=== PATIENT | female | born 1995 | race Caucasian/White ===

== ENCOUNTER 2022-09-04 10:27 | Emergency (ER) | payer OTHER, SELFPAY ==
[2022-09-04 10:34] VITALS: BP 153/87; PULSE 91; RESP 16; TEMP 36.8; O2SAT 99; BMI 33.1
--- NOTE | 2022-09-04 12:12 | XR_ITS ---
The [address] [address] Patient Name: JOANIE GOMEZ MRN: [id number] date: 1995 Sex: F Assigned Patient Location: ER Current Patient Location: ER Accession/Order Number: [id number] Exam Date: 09/04/2022 12:25 Report Date: 09/04/2022 12:51 At the request of: RENZO HYMAN Procedure: XR thoracic spine 3V EXAMINATION: XR thoracic spine 3V HISTORY: pain, acute on chronic, concern for scoliosis COMPARISON: No relevant comparison available. FINDINGS: BONES: Normal. No significant spondylosis, scoliosis, fracture, or visible bony lesion. DISC SPACES: Normal. No significant disc height narrowing, subluxation, or endplate abnormality. PARASPINOUS: Negative. No paraspinous abnormality is seen. OTHER: Negative. IMPRESSION: No acute abnormality Electronically authenticated by: ROSALINA GALLARDO Date: 09/04/2022 12:51
--- NOTE | 2022-09-04 12:23 | ED.GENADUL1 ---
HPI - General Adult General Chief complaint: Back Pain/Injury Stated complaint: BACK PAIN Time Seen by Provider: 09/04/22 10:31 Source: patient Mode of arrival: walk-in Limitations: no limitations History of Present Illness HPI narrative: Patient is a 27-year-old female who is presenting to the Emergency Room with one week of mid/lower thoracic pain. Patient has 2 small children at home. 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 Patient has no new injury. Patient has intermittent numbness and tingling down her arms, that is chronic. Patient has no neck pain, no headache. Patient has no chest pain or shortness of breath, nausea, vomiting, bowel pain, or any other acute complaints. Patient has been taking ibuprofen, not doing any stretching, she's been using heat as well. Patient's PCP is in [place], Dr. Abdullahi. Dr. Abdullahi is retiring, she is currently seeing a new physician in that office that she is only seen one time. Patient's here because pain secondary better. No questions or concerns otherwise. Related Data Previous Rx's Medication Instructions Recorded methocarbamol 500 mg tablet 500 mg PO TID PRN muscle pain #10 09/04/22 tabs tramadol 50 mg tablet 50 mg PO Q8H PRN pain #10 tabs 09/04/22 Allergies Allergy/AdvReac Type Severity Reaction Status Date / Time amoxicillin Allergy Severe Verified 09/04/22 10:34 Review of Systems ROS Narrative All systems are negative except as noted/marked. All systems reviewed and otherwise negative. PFSH PFSH Social History Smoking status: Former smoker Exam Narrative Exam Narrative: Nurses note and vital signs reviewed and patient is not hypoxic. General: The patient appears well and in no apparent distress. Patient is resting comfortably on cart. Patient is not toxic, lethargic, or listless Skin: Warm, dry, no pallor noted. There is no rash noted. No petechiae, purpura. Head: Normocephalic, atraumatic Eye: Normal conjunctiva, no drainage, EOMI. PERRL Ears, Nose, Mouth, and Throat: oral mucosa is moist. Cardiovascular: Regular Rate and Rhythm, no murmur, gallop, rub Respiratory: Patient is in no distress, no accessory muscle use, lungs are clear to auscultation, no wheezing, rales or rhonchi Back: Patient has mild to moderate tenderness palpation to bilateral thoracic paraspinal from approximately T5?T 10, no rash, patient has no midline tenderness palpation, otherwise non-tender, no CVA tenderness bilaterally to percussion. No CT LS midline pain GI: soft, no tenderness to palpation, no masses appreciated. No rebound, guarding, or rigidity noted. No flank pain bilateral, No distention Musculoskeletal: Patient has full range of motion of all of the extremities, no motor, sensory, or focal neurological deficits Neurological: A&O x3, normal speech Psychiatric: Cooperative Constitutional Vital Signs - 24 hr 09/04/22 10:34 Temperature 98.2 F Pulse Rate [Monitor] 91 H Respiratory Rate 16 Blood Pressure [Right Arm] 153/87 H Pulse Oximetry 99 Oxygen Delivery Method Room Air Course Vital Signs Vital signs: Vital Signs Temperature 98.2 F 09/04/22 10:34 Pulse Rate 91 H 09/04/22 10:34 Respiratory Rate 16 09/04/22 10:34 Blood Pressure 153/87 H 09/04/22 10:34 Pulse Oximetry 99 09/04/22 10:34 Oxygen Delivery Method Room Air 09/04/22 10:34 Temperature 98.2 F 09/04/22 10:34 Pulse Rate 91 H 09/04/22 10:34 Respiratory Rate 16 09/04/22 10:34 Blood Pressure 153/87 H 09/04/22 10:34 Pulse Oximetry 99 09/04/22 10:34 Oxygen Delivery Method Room Air 09/04/22 10:34 Medical Decision Making MDM Narrative Medical decision making narrative: Patient was given shot of Toradol. Patient had thoracic x-ray at her request because she is concerned about scoliosis, states that her parents are bad and they never took her to the doctor to have her have x-rays of her chronic back pain. Patient will be sent home with tramadol and Robaxin, education ice and stretching. Patient will follow-up with PCP. No questions at discharge Discharge Plan Discharge Chief Complaint: Back Pain/Injury Clinical Impression: Thoracic back pain Patient Disposition: Home, Self-Care Prescriptions / Home Meds: New tramadol 50 mg tablet 50 mg PO Q8H PRN (Reason: pain) Qty: 10 0RF methocarbamol 500 mg tablet 500 mg PO TID PRN (Reason: muscle pain) Qty: 10 0RF Instructions: Thoracic Pain (ED), Chronic Back Pain (DC), Back Pain (ED), Lower Back Exercises (ED) Additional Instructions: Ice and thoracic back stretching exercises were discussed at bedside and on discharge paperwork. Do not use heat. Call your family doctor as discussed for outpatient physical therapy if indicated. He may use Tylenol, anti-inflammatories, along which, lower, muscle relaxer, and ice. Nothing will get better without ice, stretching. Stand Alone Forms: Portal Instructions Referrals: JOYA ABDULLAHI [Primary Care Provider] - 1 week
[2022-09-04] MEDS: KETOROLAC TROMETHAMINE 60 MG/2 ML VIAL IM (12:45)
[2022-09-04 13:29] VITALS: BP 143/78; PULSE 87; RESP 16; TEMP 36.8; O2SAT 97
== END 2022-09-04 13:31 | disposition home or self-care (01) ==
PROVIDERS: Emergency Provider Emergency Medicine; PCP Family Medicine
DX: M54.6 Pain in thoracic spine (principal); Z87.891 Personal history of nicotine dependence
CPT/HCPCS: 72072; 80053; 81001; 83605; 83690; 84703; 85025; 96374; 99284

== ENCOUNTER 2022-10-16 21:02 | Emergency (ER) | payer OTHER, SELFPAY ==
[2022-10-16 21:08] VITALS: BP 130/78; PULSE 72; RESP 18; TEMP 36.6; O2SAT 99; BMI 34.6
--- NOTE | 2022-10-16 21:41 | US_ITS ---
The [place] [id number] Patient Name: JOANIE GOMEZ MRN: [id number] date: 1995 Sex: F Assigned Patient Location: ER Current Patient Location: ER Accession/Order Number: [id number] Exam Date: 10/16/2022 22:35 Report Date: 10/16/2022 23:55 At the request of: FLORENCIA COHEN Procedure: US OB transvaginal EXAMINATION: US OB transvaginal HISTORY: trauma and pain COMPARISON: No relevant comparison available. FINDINGS: GESTATIONAL SAC: Present and normal appearing. YOLK SAC: Not seen. POLE: Present. CARDIAC: Absent. UTERUS: Slightly hypervascular, but otherwise normal size and appearance. OVARIES: Right: Normal. Left: Normal. CERVIX: 3.8 cm in length and closed. CUL-DE-SAC: Normal. OTHER: None. AGE BY LMP: 10 weeks 4 days VALARIE BY LMP: 05/10/2023 AGE BY US CRL: 9 weeks 6 days VALARIE BY US CRL: 05/15/2023 US/US OB transvaginal IMPRESSION: 1. Intrauterine measuring 9 weeks 6 days; no detectable heartbeat at this time. Electronically authenticated by: BEBO HUSSEIN Date: 10/16/2022 23:55
[2022-10-16 21:52] LABS: Basophils Percent Auto 0.3 % (0.2-2.0); Eosinophils Absolute Auto 0.1 10^3/uL (0.0-0.7); Eosinophils Percent Auto 1.1 % (0.9-7.0); Hematocrit 37.8 % (36.0-48.0); Hemoglobin 12.8 g/dL (12.0-16.0); Immature Granulocytes Abs Auto 0.04 10^3/uL (0.00-0.03); Immature Granulocytes Pct Auto 0.3 % (0.0-0.5); Lymphocytes Absolute Auto 2.2 10^3/uL (1.2-3.8); Mean Corpuscular HGB Conc 33.9 g/dL (29.9-35.2); Mean Corpuscular Hemoglobin 27.7 pg (26.7-34.0); Mean Corpuscular Volume 81.8 fL (81.0-99.0); Mean Platelet Volume 8.8 fL (9.5-13.5); Monocytes Absolute Auto 0.5 10^3/uL (0.3-0.8); Monocytes Percent Auto 3.8 % (1.7-12.0); Neutrophils Absolute Auto 9.2 10^3/uL (1.4-6.5); Neutrophils Percent Auto 76.5 % (43.0-75.0); Platelet Count 271 10^3/uL (150-450); Red Blood Count 4.62 10^6/uL (4.20-5.40); Red Cell Distribution Width 12.4 % (11.0-15.0)
[2022-10-16 22:07] LABS: Alanine Aminotransferase 13 U/L (14-59); Albumin Level 3.6 g/dL (3.4-5.0); Alkaline Phosphatase 64 U/L (46-116); Anion Gap 13.7; Aspartate Amino Transferase 13 U/L (15-37); BUN Creatinine Ratio 9.6; Bilirubin Total 0.2 mg/dL (0.2-1.0); Calcium 8.7 mg/dL (8.5-10.1); Carbon Dioxide 24.6 mmol/L (21.0-32.0); Chloride 104 mmol/L (98-107); Estimated GFR (African America >60 (>=60); Estimated GFR (Non-African Ame >60 (>=60); Globulin 3.7 g/dL; Glucose 121 mg/dL (74-106); Potassium 4.3 mmol/L (3.5-5.1); Sodium 138 mmol/L (136-145); Total Protein 7.3 g/dL (6.4-8.2)
[2022-10-16 22:27] LABS: HCG Quantitative 8551 mIU/mL
[2022-10-16 23:28] VITALS: BP 120/78; PULSE 62; RESP 16; O2SAT 98
[2022-10-17 01:21] LABS: Bilirubin Urine NEGATIVE (NEGATIVE); Blood Urine TRACE-I (NEGATIVE); Clarity Urine CLEAR (CLEAR); Color Urine LT. YELLOW (YELLOW); Glucose Urine UA NEGATIVE (NEGATIVE); Ketones Urine NEGATIVE (NEGATIVE); Leukocyte Esterase Urine NEGATIVE (NEGATIVE); Nitrite Urine NEGATIVE (NEGATIVE); Protein Urine NEGATIVE (NEG/TRACE); Specific Gravity Urine 1.015 (1.005-1.025); Urine Microscopic Indicated YES; Urobilinogen Urine 0.2 EU/dL (0.2-1.0)
[2022-10-17 01:28] LABS: Bacteria Urine NONE SEEN #/HPF (NONE SEEN); Cast Seen? NONE SEEN #/LPF (NONE SEEN); Crystals Seen? None Seen #/HPF (None Seen); Mucus Urine TRACE (NONE SEEN); Squamous Epithelial Cell Urine RARE #/LPF (NONE/RARE); Urine Culture Indicated NO; WBC Urine NONE SEEN #/HPF (NONE SEEN)
--- NOTE | 2022-10-17 01:41 | ED.FEMALEGU1 ---
HPI - Female Genitourinary General Chief complaint: OB/Uterine Contractions Stated complaint: Pelvic Pain, - less then 20-wks Time Seen by Provider: 10/16/22 21:09 Source: patient Mode of arrival: walk-in Limitations: no limitations History of Present Illness HPI Narrative: The patient presented to us with a suprapubic pain crampy-like that started almost a few hours ago she mentioned that 3 hours prior to the pain starting she had this kick by her 3 years old while playing The patient denies any vaginal bleeding denying any other complaints she mentioned that she just knew that she was almost 2 days ago and she thinks that she is almost 10 weeks This patient at the third and there was no history of miscarriage no history of vaginal bleeding but she did had some spotting while having sexual encounter was 3 days ago The patient have no nausea no vomiting no changes in bowel movement and she was diagnosed with UTI not long time ago and she was still finishing her antibiotic and she thinks she is taking cefdinir Related Data Home Medications Medication Instructions Recorded Confirmed cetirizine 10 mg tablet 40 mg PO DAILY 10/16/22 10/16/22 fluticasone propionate 50 1 spray intranasal DAILY 10/16/22 10/16/22 mcg/actuation nasal spray,suspension Previous Rx's Medication Instructions Recorded methocarbamol 500 mg tablet 500 mg PO TID PRN muscle pain #10 09/04/22 tabs tramadol 50 mg tablet 50 mg PO Q8H PRN pain #10 tabs 09/04/22 Allergies Allergy/AdvReac Type Severity Reaction Status Date / Time amoxicillin Allergy Severe Verified 10/16/22 21:13 Review of Systems ROS Status of ROS 10 or more systems reviewed and unremarkable except as noted in history and below [facility] Social History Smoking status: Former smoker Exam Narrative Exam Narrative: Nurses notes and vital signs reviewed and patient is not hypoxic. General: Well-appearing and in no apparent distress. Skin: Warm, dry, no pallor noted. No rash. Head: Normocephalic, atraumatic. Neck: Supple, non-tender. Eye: Pupils are equal, round and EOMI. No scleral icterus. Ears, Nose, Mouth, and Throat: TM are clear, no nasal mucosal hypertrophy. Oral mucosa is moist, no posterior oropharynx erythema, uvula is mid-line Cardiovascular: Regular Rate and Rhythm without murmur, gallop or rub. Respiratory: No accessory muscle use or respiratory distress. Lungs are clear to auscultation, no wheezing, rales or rhonchi Chest Wall: no tenderness Back: No midline thoracic or lumbar vertebral tenderness. No CVA tenderness Musculoskeletal: normal ROM, no calf or popliteal tenderness, no lower extremity edema/swelling GI: Abdomen is soft, non-distended. Normal bowel sounds. No masses appreciated. No tenderness to palpation. No rebound, guarding, or rigidity noted. Neurological: A&O x4. No cranial nerve dysfunction observed. No truncal ataxia. Moves all extremities. Sensation intact. Psychiatric: Cooperative and interactive. Normal mood and affect. Constitutional Vital Signs, click to edit/add: Last Vital Signs Temp 98 F 10/16/22 21:08 Pulse 62 10/16/22 23:28 Resp 16 10/16/22 23:28 BP 120/78 10/16/22 23:28 Pulse Ox 98 10/16/22 23:28 O2 Del Method Room Air 10/16/22 23:28 Course Vital Signs Vital signs: Vital Signs Temperature 98 F 10/16/22 21:08 Pulse Rate 72 10/16/22 21:08 Respiratory Rate 18 10/16/22 21:08 Blood Pressure 130/78 10/16/22 21:08 Pulse Oximetry 99 10/16/22 21:08 Oxygen Delivery Method Room Air 10/16/22 21:08 Temperature 98 F 10/16/22 21:08 Pulse Rate 62 10/16/22 23:28 Respiratory Rate 16 10/16/22 23:28 Blood Pressure 120/78 10/16/22 23:28 Pulse Oximetry 98 10/16/22 23:28 Oxygen Delivery Method Room Air 10/16/22 23:28 MDM - Female Genitourinary MDM Narrative Medical decision making narrative: The patient CBC and chemistry showed no acute pathology and her blood group is O+ hCG quantitative was 8000 almost And the patient urinalysis showed no UTI The patient ultrasound transvaginal shows 9 weeks with no heart . I did speak with Dr. Negrete and OUTSIDE DELIVERER and I discussed the case with her right now the patient pain could be secondary to the demise. The patient was informed of the results and discussed the results of the findings with her she is to follow-up with Dr. Negrete next week The patient also instructed about pain management and proper monitoring her symptoms in case of vaginal bleeding The patient is to follow up with primary care physician in next 2-3 days or to return to the emergency department should any of the signs or symptoms worsen or new symptoms develop. The patient agrees with the following Diagnosis and Treatment plan and the patient will be discharged home. Lab Data Labs: Lab Results 10/16/22 10/16/22 10/17/22 Range/Units 01:10 21:40 00:35 WBC 12.0 H (4.0-11.0) 10^3/uL RBC 4.62 (4.20-5.40) 10^6/uL Hgb 12.8 (12.0-16.0) g/dL Hct 37.8 (36.0-48.0) % MCV 81.8 (81.0-99.0) fL MCH 27.7 (26.7-34.0) pg MCHC 33.9 (29.9-35.2) g/dL RDW 12.4 (11.0-15.0) % Plt Count 271 (150-450) 10^3/uL MPV 8.8 L (9.5-13.5) fL Neut % (Auto) 76.5 H (43.0-75.0) % Lymph % (Auto) 18.0 L (20.5-60.0) % [place] % (Auto) 3.8 (1.7-12.0) % Eos % (Auto) 1.1 (0.9-7.0) % Baso % (Auto) 0.3 (0.2-2.0) % Neut # (Auto) 9.2 H (1.4-6.5) 10^3/uL Lymph # (Auto) 2.2 (1.2-3.8) 10^3/uL [place] # (Auto) 0.5 (0.3-0.8) 10^3/uL Eos # (Auto) 0.1 (0.0-0.7) 10^3/uL Baso # (Auto) 0.0 (0.0-0.1) 10^3/uL Abs Immat Gran (auto) 0.04 H (0.00-0.03) 10^3/uL Imm/Tot Granulo (auto) 0.3 (0.0-0.5) % Sodium 138 (136-145) mmol/L Potassium 4.3 (3.5-5.1) mmol/L Chloride 104 (98-107) mmol/L Carbon Dioxide 24.6 (21.0-32.0) mmol/L Anion Gap 13.7 BUN 9.0 (7.0-18.0) mg/dL Creatinine 0.94 (0.55-1.02) mg/dL Est GFR ( Amer) >60 (>=60) Est GFR (Non-Af Amer) >60 (>=60) BUN/Creatinine Ratio 9.6 Glucose 121 H (74-106) mg/dL Calcium 8.7 (8.5-10.1) mg/dL Total Bilirubin 0.2 (0.2-1.0) mg/dL AST 13 L (15-37) U/L ALT 13 L (14-59) U/L Alkaline Phosphatase 64 (46-116) U/L Total Protein 7.3 (6.4-8.2) g/dL Albumin 3.6 (3.4-5.0) g/dL Globulin 3.7 g/dL Albumin/Globulin Ratio 1.0 HCG, Quant 8551 mIU/mL Urine Color Lt. yellow (YELLOW) Urine Clarity Clear (CLEAR) Urine pH 7.0 (5.0-9.0) Ur Specific [place] 1.015 (1.005-1.025) Urine Protein Negative (NEG/TRACE) mg/dL Urine Glucose (UA) Negative (NEGATIVE) mg/dL Urine Ketones Negative (NEGATIVE) mg/dL Urine Occult Blood Trace-i (NEGATIVE) Urine Nitrite Negative (NEGATIVE) Urine Bilirubin Negative (NEGATIVE) Urine Urobilinogen 0.2 (0.2-1.0) EU/dL Ur Leukocyte Esterase Negative (NEGATIVE) Urine RBC 2-5 A (0-2) #/HPF Urine WBC None seen (NONE SEEN) #/HPF Ur Squamous Epith Cells Rare (NONE/RARE) #/LPF Urine Crystals None seen (None Seen) #/HPF Urine Bacteria None seen (NONE SEEN) #/HPF Urine Casts None seen (NONE SEEN) #/LPF Urine Mucus Trace A (NONE SEEN) Ur Culture Indicated? No Blood Type O Positive Antibody Screen Negative Discharge Plan Discharge Chief Complaint: OB/Uterine Contractions Clinical Impression: demise due to miscarriage Patient Disposition: Home, Self-Care Time of Disposition Decision: 01:54 Condition: Good Mode of Transportation: Private Vehicle Prescriptions / Home Meds: No Action tramadol 50 mg tablet 50 mg PO Q8H PRN (Reason: pain) Qty: 10 0RF methocarbamol 500 mg tablet 500 mg PO TID PRN (Reason: muscle pain) Qty: 10 0RF cetirizine 10 mg tablet 40 mg PO DAILY fluticasone propionate 50 mcg/actuation spray,suspension 1 spray INTRANASAL DAILY Instructions: Miscarriage (ED) Stand Alone Forms: Portal Instructions Referrals: JOYA ABDULLAHI [Primary Care Provider] - 1 week Discharge Date/Time: 10/17/22 02:15
== END 2022-10-17 02:15 | disposition home or self-care (01) ==
PROVIDERS: Emergency Provider Emergency Medicine; PCP Family Medicine
DX: O03.9 Complete or unspecified spontaneous abortion without complication (principal); Z87.891 Personal history of nicotine dependence
CPT/HCPCS: 36415; 76817; 80053; 81001; 81003; 84702; 85025; 86850; 86900; 86901; 99284

== ENCOUNTER 2022-10-22 03:00 | Day surgery (SDC) | payer OTHER, SELFPAY ==
[2022-10-22] VITALS (46 sets, daily range): BP systolic 50–131; BP diastolic 33–74; PULSE 52–92; RESP 9–22; TEMP 36.7–36.8; O2SAT 88–100; BMI 75.0
--- NOTE | 2022-10-22 | US_ITS ---
The [address] [address] Patient Name: JOANIE GOMEZ MRN: [id number] date: 1995 Sex: F Assigned Patient Location: ED.MAIN Current Patient Location: ER Accession/Order Number: [id number] Exam Date: 10/22/2022 08:00 Report Date: 10/22/2022 08:44 At the request of: LENNY MARKER Procedure: US pelvis EXAMINATION: US pelvis HISTORY: RETAINED PRODUCTS COMPARISON: No relevant comparison available. FINDINGS: Transabdominal images The uterus is poorly visualized due to poor acoustic window. The endometrial is poorly visualized US/US pelvis IMPRESSION: Limited imaging of the uterus. No definite retained products of conception Electronically authenticated by: ROSALINA GALLARDO Date: 10/22/2022 08:44
--- NOTE | 2022-10-22 03:18 | ECG_ITS ---
The [facility] Test Date: 2022-10-22 Pat Name: JOANIE GOMEZ Department: Room: - Gender: Female Admitting Interviewer: : 1995 Requested By: Order Number: [id number] Reading MD: ELOISA PATEL Measurements Intervals [place] Rate: 76 P: 22 ND: 160 QRS: 28 QRSD: 88 T: 15 QT: 358 QTc: 388 Interpretive Statements 1100 Sinus rhythm Non-Specific T wave inversion in III 9110 normal ECG No previous ECG available for comparison Electronically Signed On 10-23-2022 5:52:09 EDT by ELOISA PATEL
[2022-10-22 03:31] LABS: Basophils Percent Auto 0.3 % (0.2-2.0); Eosinophils Absolute Auto 0.5 10^3/uL (0.0-0.7); Eosinophils Percent Auto 3.9 % (0.9-7.0); Hematocrit 30.7 % (36.0-48.0); Hemoglobin 10.5 g/dL (12.0-16.0); Immature Granulocytes Abs Auto 0.06 10^3/uL (0.00-0.03); Immature Granulocytes Pct Auto 0.4 % (0.0-0.5); Lymphocytes Absolute Auto 3.1 10^3/uL (1.2-3.8); Mean Corpuscular HGB Conc 34.2 g/dL (29.9-35.2); Mean Corpuscular Hemoglobin 28.2 pg (26.7-34.0); Mean Corpuscular Volume 82.5 fL (81.0-99.0); Mean Platelet Volume 9.2 fL (9.5-13.5); Monocytes Absolute Auto 0.7 10^3/uL (0.3-0.8); Monocytes Percent Auto 4.9 % (1.7-12.0); Neutrophils Absolute Auto 9.1 10^3/uL (1.4-6.5); Neutrophils Percent Auto 67.5 % (43.0-75.0); Platelet Count 274 10^3/uL (150-450); Red Blood Count 3.72 10^6/uL (4.20-5.40); Red Cell Distribution Width 12.6 % (11.0-15.0); White Blood Count 13.5 10^3/uL (4.0-11.0)
--- NOTE | 2022-10-22 03:32 | ED_ITS ---
HPI - Female Genitourinary General Chief complaint: Vaginal Bleeding Stated complaint: PROBLEMS > 20 WEEKS Time Seen by Provider: 10/22/22 03:02 Source: patient Mode of arrival: walk-in History of Present Illness HPI Narrative: This 27-year-old female who is approximately 9 weeks and was diagnosed with demise at a October 16 presents for evaluation of lower abdominal cramping and passage of large amount of clots, bleeding and the patient believes that she passed the fetus. She was seen in this emergency department and diagnosed with a demise. She followed up with Dr. Sadler, her SHOWER ENCLOSURE INSTALLER, he repeated the ultrasound and confirmed the demise. The patient states she was having a small amount of spotting until around midnight tonight when she woke up soaked with blood with large volume of clots and thinks that she passed the fetus because she saw the tissue. Upon arrival she was dizzy and nauseated. She was noted to be pale and somewhat sweaty. She was taken to room 8 and put on the stretcher. She has not passed out and is not actively vomiting. Related Data Home Medications Medication Instructions Recorded Confirmed cetirizine 10 mg tablet 40 mg PO DAILY 10/16/22 10/16/22 fluticasone propionate 50 1 spray intranasal DAILY 10/16/22 10/16/22 mcg/actuation nasal spray,suspension Previous Rx's Medication Instructions Recorded methocarbamol 500 mg tablet 500 mg PO TID PRN muscle pain #10 09/04/22 tabs tramadol 50 mg tablet 50 mg PO Q8H PRN pain #10 tabs 09/04/22 Allergies Allergy/AdvReac Type Severity Reaction Status Date / Time amoxicillin Allergy Severe Verified 10/22/22 03:15 Review of Systems ROS Status of ROS 10 or more systems reviewed and unremarkable except as noted in history and below PFSH PFS Social History Smoking status: Never smoker Exam Narrative Exam Narrative: Nurses note and vital signs reviewed and patient is not hypoxic. Blood pressure was moderately low at 117/63 General: Alert, non toxic but pale adult female, no respiratory distress Skin: warm, pale, slightly diaphoretic Head: Normocephalic, atraumatic Eye: Normal conjunctiva, no drainage, EOMI. PERRL Ears, Nose, Mouth, and Throat: oral mucosa is moist. Cardiovascular: Regular Rate and Rhythm S1S2, no murmurs, rubs or gallops appreciated Respiratory: Patient is in no distress, no accessory muscle use, lungs are clear to auscultation, no wheezing, rales or rhonchi Back: non-tender, no CVA tenderness bilaterally to percussion. GI: Normal bowel sounds, soft, tenderness in lower abdomen withourt rebound, guarding or rigidity - RN assisted with exam and procedure; large amount of bright red blood in vaginal vault with large amount of blood clots and blood coming from cervix, os is open, mild tenderness on exam Musculoskeletal: The patient has no evidence of calf tenderness, no pitting edema, symmetrical pulses noted bilaterally Neurological: A&O x4, normal speech Psychiatric: Cooperative, tearful at times Constitutional Vital Signs, click to edit/add: Last Vital Signs Temp 98.2 F 10/22/22 03:15 Pulse 80 10/22/22 04:31 Resp 15 10/22/22 04:31 BP 102/51 10/22/22 04:31 Pulse Ox 100 10/22/22 04:31 O2 Del Method Room Air 10/22/22 03:15 Course Consultations Consultation #1: Dr Gleason Time: 04:05 Vital Signs Vital signs: Vital Signs Temperature 98.2 F 10/22/22 03:15 Pulse Rate 75 10/22/22 03:15 Respiratory Rate 20 10/22/22 03:15 Blood Pressure 117/63 10/22/22 03:15 Pulse Oximetry 98 10/22/22 03:15 Oxygen Delivery Method Room Air 10/22/22 03:15 Temperature 98.2 F 10/22/22 03:15 Pulse Rate 80 10/22/22 04:31 Respiratory Rate 15 10/22/22 04:31 Blood Pressure 102/51 10/22/22 04:31 Pulse Oximetry 100 10/22/22 04:31 Oxygen Delivery Method Room Air 10/22/22 03:15 MDM - Female Genitourinary MDM Narrative Medical decision making narrative: This 27-year-old female who is approximately 9 weeks when she was seen in this emergency department on October 16 and found to have a demise on ultrasound that was confirmed by her SHOWER ENCLOSURE INSTALLER,Dr. Sadler, presents for evaluation of heavy vaginal bleeding with passage of clots and some tissue that started around midnight. She complained of feeling weak and dizzy upon arrival after having several hours of heavy bleeding. She had used four pads in the hour prior to arrival and was passing large clots. She did not bring the tissue that she felt was the fetus to the emergency department with her. She was noted to be mildly pale upon arrival. Vital signs were normal with the exception of a mildly low blood pressure 117/63. Pulse and EKG were at75-76 beats for minute. No acute changes were noted on her EKG. Upon arrival she was taken to Bed 8 and an IV was placed and she was medicated with IV fluids, Toradol and Zofran. A pelvic exam revealed a large volume of active bleeding from the cervix with passage of multiple clots. I attempted to remove the clots with a ring forceps but was unable to completely remove all the clots and the bleeding did not stop, her cervical os was open. Routine labs are reviewed. She has a mildly elevated white count at 13. Her hemoglobin at 10.5 is considerably lower than when she was here on October 16 when it was 12.8. Her blood type at that time was O positive. She was typed and screened today. Remainder of her labs were essentially normal. Due to the fact that I am not able to stop the bleeding patient will likely require a D and C. The case was discussed with Dr Gleason and she was accepted for admission. She had not eaten since 11pm but was made NPO in preparation for a D&C later this morning. Lab Data Lab results narrative: Patient's white count is elevated at 13.5, hemoglobin is decreased from 12.8 on October 08 to 10.5 today. Beta quantitative hCG is considerably lower at 966. labs are otherwise unremarkable Labs: Lab Results 10/22/22 Range/Units 03:22 WBC 13.5 H (4.0-11.0) 10^3/uL RBC 3.72 L (4.20-5.40) 10^6/uL Hgb 10.5 L (12.0-16.0) g/dL Hct 30.7 L (36.0-48.0) % MCV 82.5 (81.0-99.0) fL MCH 28.2 (26.7-34.0) pg MCHC 34.2 (29.9-35.2) g/dL RDW 12.6 (11.0-15.0) % Plt Count 274 (150-450) 10^3/uL MPV 9.2 L (9.5-13.5) fL Neut % (Auto) 67.5 (43.0-75.0) % Lymph % (Auto) 23.0 (20.5-60.0) % [place] % (Auto) 4.9 (1.7-12.0) % Eos % (Auto) 3.9 (0.9-7.0) % Baso % (Auto) 0.3 (0.2-2.0) % Neut # (Auto) 9.1 H (1.4-6.5) 10^3/uL Lymph # (Auto) 3.1 (1.2-3.8) 10^3/uL [place] # (Auto) 0.7 (0.3-0.8) 10^3/uL Eos # (Auto) 0.5 (0.0-0.7) 10^3/uL Baso # (Auto) 0.0 (0.0-0.1) 10^3/uL Abs Immat Gran (auto) 0.06 H (0.00-0.03) 10^3/uL Imm/Tot Granulo (auto) 0.4 (0.0-0.5) % Sodium 137 (136-145) mmol/L Potassium 3.6 (3.5-5.1) mmol/L Chloride 106 (98-107) mmol/L Carbon Dioxide 20.2 L (21.0-32.0) mmol/L Anion Gap 14.4 BUN 9.0 (7.0-18.0) mg/dL Creatinine 0.92 (0.55-1.02) mg/dL Est GFR ( Amer) >60 (>=60) Est GFR (Non-Af Amer) >60 (>=60) BUN/Creatinine Ratio 9.8 Glucose 149 H (74-106) mg/dL Calcium 8.2 L (8.5-10.1) mg/dL Total Bilirubin 0.1 L (0.2-1.0) mg/dL AST 12 L (15-37) U/L ALT 17 (14-59) U/L Alkaline Phosphatase 69 (46-116) U/L Total Protein 6.6 (6.4-8.2) g/dL Albumin 3.2 L (3.4-5.0) g/dL Globulin 3.4 g/dL Albumin/Globulin Ratio 0.9 HCG, Quant 966 mIU/mL Blood Type O Positive Antibody Screen Negative ECG Data Attestation: I personally reviewed and interpreted this ECG as follows: (Sinus rhythm at 76 beats for minute, normal axis, nonspecific ST changes, no acute ST segment elevation or T-wave inversion) Critical Care Time Critical Care Time Critical Care Time: Yes Total Critical Care Time: 35 (minutes) Attestation: . Discharge Plan Discharge Chief Complaint: Vaginal Bleeding Clinical Impression: Incomplete Patient Disposition: Admitted as Observation Time of Disposition Decision: 04:17 Condition: Fair
[2022-10-22] MEDS: 0.9 % SODIUM CHLORIDE 1,000 ML 1000 ML IV (03:50)
[2022-10-22 03:52] LABS: Alanine Aminotransferase 17 U/L (14-59); Albumin Globulin Ratio 0.9; Albumin Level 3.2 g/dL (3.4-5.0); Alkaline Phosphatase 69 U/L (46-116); Anion Gap 14.4; Aspartate Amino Transferase 12 U/L (15-37); BUN Creatinine Ratio 9.8; Bilirubin Total 0.1 mg/dL (0.2-1.0); Calcium 8.2 mg/dL (8.5-10.1); Carbon Dioxide 20.2 mmol/L (21.0-32.0); Chloride 106 mmol/L (98-107); Estimated GFR (African America >60 (>=60); Estimated GFR (Non-African Ame >60 (>=60); Globulin 3.4 g/dL; Glucose 149 mg/dL (74-106); Potassium 3.6 mmol/L (3.5-5.1); Sodium 137 mmol/L (136-145); Total Protein 6.6 g/dL (6.4-8.2)
[2022-10-22 03:57] LABS: HCG Quantitative 966 mIU/mL
[2022-10-22] MEDS: ONDANSETRON PF 4 MG/2 ML VIAL IV (03:58)
[2022-10-22] MEDS: KETOROLAC TROMETHAMINE 30 MG/ML VIAL IVP (03:58)
--- NOTE | 2022-10-22 04:14 | PC.NURSE ---
patient was seen here on 10/16 and diagnosed with miscarriage that was confirmed by dr. Madsen on Wednesday in the office. patient states she woke up with her clothes saturated in blood and what she believed to be the tissue passing. patient states from 11pm the time she woke up to now she has saturated 4 pads and cannot stop passing clots. patient is pale, weak and dizzy. patient drove herself to ER. patient states she is having constant moderately painful uterine contractions. patient was given new brief to wear and set up for uterine exam. vital signs stable. patient on continuous monitoring. she was supposed to talk with dr. noguera today but has was not able to return his phone call. 22g iv placed, fluids initiated
[2022-10-22 06:50] LABS: Hemoglobin 8.8 g/dL (12.0-16.0); Mean Corpuscular HGB Conc 33.8 g/dL (29.9-35.2); Mean Corpuscular Hemoglobin 27.7 pg (26.7-34.0); Mean Corpuscular Volume 81.8 fL (81.0-99.0); Mean Platelet Volume 9.1 fL (9.5-13.5); Platelet Count 248 10^3/uL (150-450); Red Blood Count 3.18 10^6/uL (4.20-5.40); Red Cell Distribution Width 12.6 % (11.0-15.0); White Blood Count 12.7 10^3/uL (4.0-11.0)
--- NOTE | 2022-10-22 08:19 | P.ON_ITS ---
Brief Operative Note Date of procedure: 10/22/22 Pre-op diagnosis: missed Post-op diagnosis: same Procedure: NAME OF PROCEDURE: [D&C suction ] PROCEDURE: The patient was taken back to the OR where she was given general anesthesia w ithout difficulty. She was then placed in dorsal lithotomy position, prepped and draped in the normal sterile fashion. A weighted speculum was placed in the patient's vagina and the anterior lip of the cervix was identified and grasped with a single-tooth tenaculum. The patient was then gently dilated using Hegar dilators after we had sounded roughly to 12 cm. The suction curette was then tested. The suction curette was then placed in the patient's uterus and products of conception were removed using an 10-Citizen [place] suction curette. ?Excellent hemostasis was noted. The patient tolerated the procedure well. Sponge, lap, and needle counts were correct x 2. All instruments were then removed from the patient's vagina. The patient was taken to the Recovery Room in stable condition. ?? Anesthesia: MAC Surgeon: Nino Gleason Estimated blood loss (mL): 5 Pathology: other (products of conception) Condition: stable Disposition: PACU
[2022-10-22] MEDS: LACTATED RINGER'S SOLUTION 1,000 ML 150 ML IV (08:30)
[2022-10-22 10:08] LABS: Hematocrit 27.9 % (36.0-48.0); Hemoglobin 9.4 g/dL (12.0-16.0)
== END 2022-10-22 15:00 | disposition home or self-care (01) ==
LOC: ER 11:43 → SURGOUT 10-23 12:29
PROVIDERS: Emergency Provider Emergency Medicine; PCP Family Medicine; Visit Provider Obstetrics & Gynecology
PROC: (CPT 1965; principal; 2022-10-22 07:30)
DX: O02.1 Missed abortion (principal)
CPT/HCPCS: 59820; 36415; 36430; 76856; 80053; 84702; 85014; 85018; 85025; 85027; 86850; 86900; 86901; 86920; 88305; 93005; 99285; J2704; P9016

== ENCOUNTER 2023-03-30 08:51 | Emergency (ER) | payer OTHER, SELFPAY ==
[2023-03-30 08:56] VITALS: BP 118/77; PULSE 117; RESP 18; TEMP 39.4; O2SAT 96; BMI 33.3
[2023-03-30] MEDS: ACETAMINOPHEN 500 MG TABLET 1000 MG PO (09:07)
[2023-03-30 09:21] LABS: Influenza Virus A Antigen Positive; Influenza Virus B Antigen Negative; Internal Control Within Normal Limits
[2023-03-30 09:22] LABS: Internal Control Within Normal Limits; SARS-CoV-2 Ag NEGATIVE (NEGATIVE); Strep A Antigen Screen Negative
--- NOTE | 2023-03-30 09:32 | ED.URI1 ---
HPI - URI/Sore Throat General Chief Complaint: Upper Respiratory Infection Stated Complaint: general weakness Time Seen by Provider: 03/30/23 09:00 Source: patient Limitations: no limitations History of Present Illness HPI Narrative: 27-year-old female presents for a four day history of body aches and fever and cough. The cough is improving. she was noted to have a fever at triage. Her whole body hurts and it's moderate to severe. Symptoms are continuous. Related Data Home Medications Medication Instructions Recorded Confirmed cetirizine 10 mg tablet 40 mg PO DAILY 10/16/22 10/16/22 fluticasone propionate 50 1 spray intranasal DAILY 10/16/22 10/16/22 mcg/actuation nasal spray,suspension Previous Rx's Medication Instructions Recorded methocarbamol 500 mg tablet 500 mg PO TID PRN muscle pain #10 09/04/22 tabs tramadol 50 mg tablet 50 mg PO Q8H PRN pain #10 tabs 09/04/22 doxycycline hyclate 100 mg capsule 100 mg PO BID 7 days #14 caps 10/22/22 Allergies Allergy/AdvReac Type Severity Reaction Status Date / Time amoxicillin Allergy Severe Verified 10/22/22 03:15 Review of Systems ROS Narrative A ten point review of systems is negative except as noted above. PFSH PFSH Social History Smoking status: Former smoker Exam Narrative Exam Narrative: Nurses note and vital signs reviewed and patient is not hypoxic. General: The patient appears well and in no apparent distress. Patient is resting comfortably on cart. Skin: Warm, dry, no pallor noted. There is no rash noted. Head: Normocephalic, atraumatic Eye: Normal conjunctiva, no drainage Ears, Nose, Mouth, and Throat: oral mucosa is moist. Nares patent. Cardiovascular: Regular Rate and Rhythm, tachycardic Respiratory: Patient is in no distress, no accessory muscle use, lungs are clear to auscultation, no wheezing, rales or rhonchi Back: non-tender GI: nontender Musculoskeletal: The patient has no evidence of calf tenderness, no pitting edema, symmetrical pulses noted bilaterally Neurological: A&O, normal speech Psychiatric: Cooperative Constitutional Vital Signs, click to edit/add: Last Vital Signs Temp 102.9 F H 03/30/23 08:56 Pulse 117 H 03/30/23 08:56 Resp 18 03/30/23 08:56 BP 118/77 03/30/23 08:56 Pulse Ox 96 03/30/23 08:56 O2 Del Method Room Air 03/30/23 08:56 Course Vital Signs Vital signs: Vital Signs Temperature 102.9 F H 03/30/23 08:56 Pulse Rate 117 H 03/30/23 08:56 Respiratory Rate 18 03/30/23 08:56 Blood Pressure 118/77 03/30/23 08:56 Pulse Oximetry 96 03/30/23 08:56 Oxygen Delivery Method Room Air 03/30/23 08:56 Temperature 102.9 F H 03/30/23 08:56 Pulse Rate 117 H 03/30/23 08:56 Respiratory Rate 18 03/30/23 08:56 Blood Pressure 118/77 03/30/23 08:56 Pulse Oximetry 96 03/30/23 08:56 Oxygen Delivery Method Room Air 03/30/23 08:56 MDM - URI/Sore Throat MDM Narrative Medical decision making narrative: the patient has tested positive for influenza a. She was recommended rest, Tylenol and Motrin, and plenty of fluids. Treatment diagnosis and follow-up were discussed with the patient Differential Diagnosis Differential diagnosis: Likely upper respiratory infection, pharyngitis and other (Covid) Lab Data Attestation: I reviewed the patient's lab results. Labs: Lab Results 03/30/23 Range/Units 09:00 Influenza Type A Ag Positive A Influenza Type B Ag Negative SARS-CoV-2 Ag (CV2AG) Negative (NEGATIVE) Streptococcus Screen Negative Discharge Plan Discharge Chief Complaint: Upper Respiratory Infection Clinical Impression: Influenza Patient Disposition: Home, Self-Care Time of Disposition Decision: 09:31 Condition: Good Mode of Transportation: Private Vehicle Prescriptions / Home Meds: No Action tramadol 50 mg tablet 50 mg PO Q8H PRN (Reason: pain) Qty: 10 0RF methocarbamol 500 mg tablet 500 mg PO TID PRN (Reason: muscle pain) Qty: 10 0RF cetirizine 10 mg tablet 40 mg PO DAILY fluticasone propionate 50 mcg/actuation spray,suspension 1 spray INTRANASAL DAILY doxycycline hyclate 100 mg capsule 100 mg PO BID 7 Days Qty: 14 0RF Instructions: Influenza (ED), Flu Shot (Vaccine) for Adults (ED) Stand Alone Forms: Portal Instructions Referrals: JOYA ABDULLAHI [Primary Care Provider] - 1 week
[2023-03-30 09:38] VITALS: PULSE 122; RESP 18; TEMP 38; O2SAT 99
== END 2023-03-30 09:39 | disposition home or self-care (01) ==
PROVIDERS: Emergency Provider Emergency Medicine; PCP Family Medicine
DX: J10.1 Influenza due to other identified influenza virus with other respiratory manifestations (principal); R50.9 Fever, unspecified; Z79.899 Other long term (current) drug therapy; Z87.891 Personal history of nicotine dependence
CPT/HCPCS: 87070; 87635; 87804; 87811; 87880; 99283

== ENCOUNTER 2024-02-11 11:02 | Emergency (ER) | payer OTHER, SELFPAY ==
[2024-02-11 11:05] VITALS: BP 131/87; PULSE 104; TEMP 36.5; O2SAT 97; BMI 35.0
[2024-02-11 11:38] LABS: Basophils Percent Auto 0.2 % (0.2-2.0); Eosinophils Absolute Auto 0.1 10^3/uL (0.0-0.7); Eosinophils Percent Auto 1.1 % (0.9-7.0); Hematocrit 39.7 % (36.0-48.0); Immature Granulocytes Abs Auto 0.03 10^3/uL (0.00-0.03); Immature Granulocytes Pct Auto 0.2 % (0.0-0.5); Lymphocytes Absolute Auto 1.5 10^3/uL (1.2-3.8); Lymphocytes Percent Auto 11.6 % (20.5-60.0); Mean Corpuscular HGB Conc 32.7 g/dL (29.9-35.2); Mean Corpuscular Hemoglobin 26.3 pg (26.7-34.0); Mean Corpuscular Volume 80.4 fL (81.0-99.0); Monocytes Absolute Auto 0.4 10^3/uL (0.3-0.8); Monocytes Percent Auto 3.2 % (1.7-12.0); Neutrophils Absolute Auto 10.5 10^3/uL (1.4-6.5); Neutrophils Percent Auto 83.7 % (43.0-75.0); Platelet Count 282 10^3/uL (150-450); Red Blood Count 4.94 10^6/uL (4.20-5.40); Red Cell Distribution Width 12.5 % (11.0-15.0); White Blood Count 12.5 10^3/uL (4.0-11.0)
--- OUTSIDE RECORDS SUMMARY | 2024-02-11 11:43 | XMS_ITS | CCD ---
Author Organization [facility] Inform ion Partnership [facility] Care Team Providers Care Grind Operator Name Role Phone LUL, DR INGRID Mas Attending Unavailross MCCARTY, DR INGRID Mas Admitting Unavailross e GEOFF, DR MUNOZ Primary Care Unavailable JABARI PENA Consulting Unavailable Constance ABDULLAHI Primary Care Physician Whitney Fournier Unavailable Unavailable Chantelle NUR Primary Care Physician Nika Bowden Primary Care Physician ROSANNE WILLSON Attending Unavailable LATRELL DUMONT Attending Unavailable Chris Sadler Attending Unavailable Chris Sadler Admitting Unavailable SALIANS Bowden Attending Unavailable SALINAS Bowden Attending Unavailable Allergies Allergy Classification Reported Allergen(s) Allergy Type Date of Onset Reaction(s) Facility Penicillins (antibiotic) (1 source) Amoxicillin Drug Allergy 11-05-2019 [facility] Repository (13 sources) Amoxicillin; Translations: [amoxicillin] Drug Allergy [facility] [place] Medications Current Medications Medication Drug Class(es) Dates Sig (Normalized) Sig (Original) Acidophilus Probiotic Blend oral capsule (1 source) Start: 04-21-2022 End: 05-21-2022 take 1 capsule by mouth once daily Acidophilus Probiotic Blend oral capsule 1 cap(s), Oral, Daily for 30 day(s), 30 cap(s), Refill(s) 0, [facility], 158, cm, 04/21/22 14:33:00 EST, Height/Length Dosing, 79.7, kg, 04/21/22 14:33:00 EST, Weight Dosing Start Date: 04/21/22 Stop Date: 05/21/22 Status: Ordered azithromycin 250 mg Tab 5-day Dose Pack (Z-Chilango) (1 source) Start: 10-19-2022 End: 10-24-2022 azithromycin 250 mg Tab 5-day Dose Pack (Z-Chilango) = 1 packet(s), Oral, As Directed, as directed on package labeling, X 5 day(s), # 6 tab(s), Refills(s) 0, Pharmacy: [facility], [facility] 1628, 158, cm, 09/07/22 14:09:00 EDT, Height/Length Dosing, 81.8, kg, 10/19/22 13:59:00 EDT, Weight Dosing Start Date: 10/19/22 Stop Date: 10/24/22 Status: Ordered cetirizine hydrochloride 5 mg oral tablet (10 sources) Histamine-1 Receptor Antagonist Start: 04-08-2023 take 1 tablet by mouth four times daily cetirizine 5 mg oral tablet 5 mg = 1 tab(s), Oral, QID, # 120 tab(s), Refills(s) 3, Pharmacy: [facility], 158, cm, 04/08/23 15:24:00 EST, Height/Length Dosing, 78.3, kg, 04/08/23 15:24:00 EST, Weight Dosing Start Date: 04/08/23 Status: Ordered Start: 11-24-2022 take 1 tablet by bo th four times daily cetirizine 5 mg oral tablet 5 mg = 1 tab(s), Oral, QID, # 120 tab(s), Refills(s) 3, Pharmacy: [facility] 1628, 158, cm, 11/24/22 12:18:00 EDT, Height/Length Dosing, 81.3, kg, 11/24/22 12:18:00 EDT, Weight Dosing Start Date: 11/24/22 Status: Ordered Start: 04-21-2022 take 1 tablet by bo th once daily cetirizine 5 mg oral tablet 5 mg = 1 tab(s), Oral, Daily, # 30 tab(s), Refills(s) 0 Start Date: 04/21/22 Status: Ordered ciprofloxacin 250 mg oral tablet (1 source) Quinolone Antimicrobial Start: 04-21-2022 End: 04-28-2022 take 1 tablet by mouth every twelve hours Cipro 250 mg Tab 250 mg = 1 tab(s), Oral, q12hr, X 7 day(s), # 14 tab(s), Refills(s) 0, Pharmacy: [facility] 1628, 158, cm, 04/21/22 14:33:00 EST, Height/Length Dosing, 79.7, kg, 04/21/22 14:33:00 EST, Weight Dosing Start Date: 04/21/22 Stop Date: 04/28/22 Status: Ordered EPINEPHrine (12 sources) alpha-Adrenergic Agonist, beta-Adrenergic Agonist, Catecholamine Start: 07-24-2021 Epipen 0.15 mg Kit 0.15 mg = 1 EA, IntraMuscular, As Directed, PRN Anaphylaxis, # 1 EA, Refills(s) 0, Pharmacy: [facility]28, 157.9, cm, 07/24/21 10:31:00 EDT, Height/Length Dosing, 75.9, kg, 07/24/21 10:31:00 EDT, Weight Dosing Start Date: 07/24/21 Status: Ordered Start: 07-24-2021 Epipen 0.15 mg Kit 0.15 mg = 1 EA, IntraMuscular, As Directed, PRN Anaphylaxis, # 1 EA, Refills(s) 0, Pharmacy: [facility]28, 157.9, cm, 07/24/21 10:31:00 EDT, Height/Length Dosing, 75.9, kg, 07/24/21 10:31:00 EDT, Weight Dosing Start Date: 07/24/21 Status: Ordered FLUoxetine 20 mg oral capsule (10 sources) Serotonin Reuptake Inhibitor Start: 04-21-2022 End: 07-20-2022 take 1 capsule by mouth three times daily Prozac 20 mg Cap 20 mg = 1 cap(s), Oral, TID, X 30 day(s), # 90 cap(s), Refills(s) 2, Pharmacy: [facility] 16[facility], 158, cm, 04/21/22 14:33:00 EST, Height/Length Dosing, 79.7, kg, 04/21/22 14:33:00 EST, Weight Dosing Start Date: 04/21/22 Stop Date: 07/20/22 Status: Ordered Start: 11-11-2021 take 1 capsule by [facility] once daily FLUoxetine 20 mg Cap 20 mg = 1 cap(s), Oral, Daily, # 30 cap(s), Refills(s) 5, Pharmacy: [facility] 1628, 157.9, cm, 11/04/21 14:05:00 EDT, Height/Length Dosing, 82.1, kg, 11/04/21 14:08:00 EDT, Weight Dosing Start Date: 11/11/21 Status: Ordered hyoscyamine sulfate 0.125 mg oral tablet (1 source) Start: 11-04-2021 take 1 tablet by mouth four times daily as needed for muscle spasms Levsin 0.125 mg oral tablet 0.125 mg = 1 tab(s), Oral, QID, PRN for spasm, # 40 tab(s), Refills(s) 5, Pharmacy: [facility], [facility] 1628, 157.9, cm, 11/04/21 14:05:00 EDT, Height/Length Dosing, 82.1, kg, 11/04/21 14:08:00 EDT, Weight Dosing Start Date: 11/04/21 Status: Ordered Lactobacillus acidophilus (1 source) Start: 11-24-2022 End: 12-08-2022 take 1 tablet by mouth twice daily Acidophilus oral tablet 1 tab, Oral, BID for 14 day(s), 28 EA, Refill(s) 0, [facility], 158, cm, 11/24/22 12:18:00 EDT, Height/Length Dosing, 81.3, kg, 11/24/22 12:18:00 EDT, Weight Dosing Start Date: 11/24/22 Stop Date: 12/08/22 Status: Ordered levoFLOXacin 500 mg oral tablet (1 source) Quinolone Antimicrobial Start: 11-24-2022 End: 12-01-2022 take 1 tablet by mouth every twenty-four hours Levaquin 500 mg Tab 500 mg = 1 tab(s), Oral, q24hr, X 7 day(s), # 7 tab(s), Refills(s) 0, Pharmacy: [facility], [facility] 1628, 158, cm, 11/24/22 12:18:00 EDT, Height/Length Dosing, 81.3, kg, 11/24/22 12:18:00 EDT, Weight Dosing Start Date: 11/24/22 Stop Date: 12/01/22 Status: Ordered methocarbamol 500 mg oral tablet (1 source) Muscle Relaxant Start: 09-07-2022 take 1 tablet by mouth three times daily methocarbamol 500 mg Tab 500 mg = 1 tab(s), Oral, TID, Refills(s) 0 Start Date: 09/07/22 Status: Ordered methylPREDNISolone 4 mg oral tablet (2 sources) Corticosteroid Start: 04-08-2023 End: 04-14-2023 Medrol 4 mg Tab = 1 packet(s), Oral, As Directed, as directed on package labeling, X 6 day(s), # 21 tab(s), Refills(s) 0, Pharmacy: [facility], 158, cm, 04/08/23 15:24:00 EST, Height/Length Dosing, 78.3, kg, 04/08/23 15:24:00 EST, Weight Dosing Start Date: 04/08/23 Stop Date: 04/14/23 Status: Ordered Start: 11-24-2022 End: 11-30-2022 Medrol 4 mg Tab = 1 packet(s ), Oral, As Directed, as directed on package labeling, X 6 day(s), # 21 tab(s), Refills(s) 0, Pharmacy: [facility] 1628, 158, cm, 11/24/22 12:18:00 EDT, Height/Length Dosing, 81.3, kg, 11/24/22 12:18:00 EDT, Weight Dosing Start Date: 11/24/22 Stop Date: 11/30/22 Status: Ordered nitrofurantoin, macrocrystals 25 mg / nitrofurantoin, monohydrate 75 mg oral capsule (1 source) Nitrofuran Antibacterial Start: 11-11-2021 End: 11-18-2021 take 1 capsule by mouth twice daily Macrobid 100 mg Cap 100 mg = 1 cap(s), Oral, BID, X 7 day(s), # 14 cap(s), Refills(s) 0, Pharmacy: [facility]28, 157.9, cm, 11/04/21 14:05:00 EDT, Height/Length Dosing, 82.1, kg, 11/04/21 14:08:00 EDT, Weight Dosing Start Date: 11/11/21 Stop Date: 11/18/21 Status: Ordered sertraline 50 mg oral tablet (4 sources) Serotonin Reuptake Inhibitor Start: 11-24-2022 take 1 tablet by mouth once daily Zoloft 50 mg Tab 50 mg = 1 tab(s), Oral, Daily, # 30 tab(s), Refills(s) 3, Pharmacy: [facility] 1628, 158, cm, 11/24/22 12:18:00 EDT, Height/Length Dosing, 81.3, kg, 11/24/22 12:18:00 EDT, Weight Dosing Start Date: 11/24/22 Status: Ordered Start: 10-19-2022 take 1 tablet by bo th once daily Zoloft 50 mg Tab 50 mg = 1 tab(s), Oral, Daily, # 30 tab(s), Refills(s) 1, Pharmacy: [facility], 158, cm, 09/07/22 14:09:00 EDT, Height/Length Dosing, 81.8, kg, 10/19/22 13:59:00 EDT, Weight Dosing Start Date: 10/19/22 Status: Ordered traMADol hydrochloride 50 mg oral tablet (1 source) Opioid Agonist Start: 09-07-2022 take 1 tablet by mouth every eight hours as needed for pain traMADOL 50 mg Tab TAKE 1 TABLET BY MOUTH EVERY 8 HOURS NEEDED FOR PAIN Start Date: 09/07/22 Status: Ordered Problems Active Problems Problem Classification Problem Date Documented Da te Episodic/Chronic Abdominal pain (20 sources) Abdominal pain; Translations: [Pain in pelvis] 11-04-2021 Episodic Allergic reactions (1 source) Allergic urticaria; Translations: [Allergic urticaria] Onset: 2 Episodic Anxiety disorders (20 sources) Anxiety; Translations: [Anxiety disorder] Onset: 3 10-10-2016 Chronic Asthma (12 sources) Exercise-induced asthma 04-04-2021 Chronic Bacterial infection; unspecified site (12 sources) Chlamydial infection 08-06-2019 Episodic Cancer of other female genital organs (12 sources) Low grade squamous intraepithelial lesion on vaginal Papanicolaou smear 07-14-2018 Episodic Conditions associated with dizziness or vertigo (6 sources) Dizziness and giddiness; Translations: [Dizziness and giddiness] Onset: 3 Episodic Disorders of teeth and jaw (2 sources) Arthralgia of temporomandibular joint; Translations: [Arthralgia of temporomandibular joint, unspecified side] Onset: 4 Episodic Genitourinary symptoms and ill-defined conditions (10 sources) Dysuria 04-21-2022 Episodic Hemorrhage during ; abruptio placenta; placenta previa (12 sources) Threatened miscarriage 12-24-2020 Episodic Mood disorders (20 sources) Depressive disorder; Translations: [Recurrent major depressive episodes, mild ] Onset: 3 04-21-2022 Chronic Nonspecific chest pain (7 sources) Chest pain; Translations: [Chest pain, unspecified] Onset: 3 Episodic Other ear and sense organ disorders (1 source) Otalgia, left ear; Translations: [Otalgia of left ear] Onset: 3 Episodic Other gastrointestinal disorders (12 sources) Irritable bowel syndrome with diarrhea 03-06-2020 Chronic Other nervous system disorders (11 sources) Neuropathy 11-04-2021 Chronic Other nervous system disorders (12 sources) Numbness of upper limb 04-04-2021 Episodic Other nervous system disorders (6 sources) Paresthesia; Translations: [Paresthesia of skin] Onset: 3 Episodic Other nervous system disorders (1 source) Anesthesia of skin; Translations: [Anesthesia of skin] Onset: 3 Episodic Other nutritional; endocrine; and metabolic disorders (15 sources) Obesity; Translations: [Other obesity due to excess calories] Onset: 2 Chronic Other nutritional; endocrine; and metabolic disorders (5 sources) Obese class I; Translations: [Body mass index (BMI) 30.0-30.9, adult] Onset: 2 Chronic Other nutritional; endocrine; and metabolic disorders (1 source) Abnormal weight gain; Translations: [Abnormal weight gain] Onset: 3 Episodic Other nutritional; endocrine; and metabolic disorders (5 sources) Weight gain 09-07-2022 Episodic Other and delivery including normal (1 source) 12-24-2020 Episodic Other screening for suspected conditions (not mental disorders or infectious disease) (12 sources) Blood chemistry abnormal; Translations: [Other specified abnormal findings of blood chemistry] Onset: 3 Episodic Other skin disorders (12 sources) Eruption 12-24-2020 Episodic Otitis media and related conditions (14 sources) Otitis media; Translations: [Otitis media, unspecified, unspecified ear] Onset: 3 12-24-2020 Episodic Residual codes; unclassified (10 sources) Family history of autism 04-21-2022 Episodic Residual codes; unclassified (5 sources) Patient encounter status; Translations: [Other specified health status] Onset: 3 Episodic Screening and history of mental health and substance abuse codes (20 sources) Personal history of nicotine dependence; Translations: [H/O: Disorder] Onset: 0 Episodic Spondylosis; intervertebral disc disorders; other back problems (15 sources) Dorsalgia, unspecified; Translations: [Pain in thoracic spine] Onset: 0 Episodic Unclassified (15 sources) Patient encounter status 07-14-2018 Unclassified (3 sources) Otalgia of left ear 11-24-2022 Urinary tract infections (10 sources) Urinary tract infectious disease 04-21-2022 Episodic Viral infection (20 sources) Herpesvirus infection; 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] 04-04-2021 Episodic Past or Other Problems Problem Classification Problem Date Documented Da te Episodic/Chronic Headache; including migraine (4 sources) Headache; Translations: [HEADACHE] Onset: 11-05-2019 Episodic Nausea and vomiting (1 source) Nausea; Translations: [NAUSEA] Onset: 11-17-2019 Episodic Unclassified (12 sources) Bipolar (qualifier value) 10-10-2016 Unclassified (20 sources) Onset: 11-02-2018 Resolved: 01-03-2021 08-08-2019 Results Test Name Value Interpretation Reference Range Facility PAP [id number] 05-21-2023 Cytology report Cyto stain Doc (Cvx/Vag) Note Invalid Interpretation Code [facility] Comment on above: Result Comment: TEST S RESULT FLAG UNITS REF RANGE LAB Clinician Provided Cytology Information Source.............Endocervix No. of containers..01 ThinPrep Vial DIAGNOSIS: 01 NEGATIVE FOR INTRAEPITHELIAL LESION OR MALIGNANCY. Specimen adequacy: 01 Satisfactory for evaluation. Endocervical and/or squamous metaplastic cells (endocervical component) are present. Performed by: 01 Kelli Suárez, Director Insurance ([facility]) . 01 Note: Note 01 The Pap smear is a screening test designed to aid in the detection of premalignant and malignant conditions of the uterine cervix. It is not a diagnostic procedure and should not be used as the sole means of detecting cervical cancer. Both false-positive and false-negative reports do occur. Test Methodology: Note 01 This liquid based ThinPrep(R) pap test was screened with the use of an image guided system. . 01 The HPV DNA reflex criteria were not met with this specimen result therefore, no HPV testing was performed. FLAG LEGEND: L-Low Normal,H-High Normal,LL-Alert Low,HH-Alert High <-Panic Low,>-Panic High,A-Abnormal,AA-Critical Abnormal Performed at: 01 [facility] [address] [place] [address] Jen Pacheco MD, Performed at: [facility] [address] [place], [place] [id number] MD Junior Li Performed By: #### 3 [id number] #### [facility] [address] [place] [address] PAP [id number] 05-17-2023 Collection Technique BRUSH-SPATULA Normal F [facility] Comment on above: Performed By: #### 3 [id number] #### [facility] [address] [place] [address] Gynecological Body Site ENDOCERVIX Normal [facility] Comment on above: Performed By: #### 3 [id number] #### [facility] [address] [place] [address] Physician Orderon 05-17-2023 Physician Order [id number] 01 [id number] 0TIFF Normal [facility] Family Medicine Office/Clini c Noteon 04-12-2023 Family Medicine Office/Clinic Note Chief Complaint 4 month follow up HPI Staff Patient is here for 6 week follow up from ENT Concerns: ENT said its not her ears that is causing her problems, recommended a referral to Oral Surgeon for TMJ Refills:Cetirizine Health Maintenance: Pap:Due Last Labs:09/07/2022 History of Present Illness Joanie Barr is a 27-year-old female who presents here today after following up with an ENT specialist. She states the specialist told her that her ears were not causing her symptoms and that she likely had TMJ problems. Recommended a referral to oral surgeon. She reports experiencing a pressure-like pain localized in the jaw area. She occasionally experiences severe pulsating pain, which interferes with her hearing. Her significant other told her that she frequently grinds her teeth during sleep. She has had an x-ray. She has not tried using a bite guard. She has tried taking Tylenol 2000 mg, which has not been beneficial. She has tolerated low dose steroids such as Medrol Dosepak well in the past. She prefers to have her prescription filled at [facility] in [place]. She mentioned that she was scheduled to see an oral surgeon for a tooth extraction in preparation for braces. She is requesting a refill of cetirizine. Her mood has been stable on Zoloft. She does not need medication refills at this time. She experienced influenza 1.5 weeks prior. Her daughter is receiving speech therapy in occupational therapy. Her grandfather's health is deteriorating. Her boyfriend's mother has had recurrent hospital admissions. Her family relocated 1 week prior to [place]. Review of Systems PHQ Score Initial Depression Screen Score: 0 SCORE All negative except as noted in the HPI. Physical Exam Vitals & Measurements HR: 89(Peripheral) BP: 114/76 SpO2: 99% HT: 62 in HT: 158 cm WT: 78.3 kg WT: 172.26 lb BMI: 31.37 Patient is alert and oriented to person place and time. Appears to be well-nourished. Normal affect. Heart sounds are normal without murmur, gallop or rub. Heart rate and rhythm normal. Lung sounds clear to auscultation. No chest wall pain noted. Normal respiratory effort without use of accessory muscles. No edema noted to bilateral lower extremities. Posterior tibial pulses palpable. Assessment/Plan 1. TMJ syndrome (M26.629: Arthralgia of temporomandibular joint, unspecified side) Patient was diagnosed with TMJ syndrome by her ENT specialist, Dr. Valerio. Has encouraged her to follow with an oral surgeon. She is aware that she grinds her teeth at night. She has been told this by her significant other. She also has to have some other dental work done, has to have baby tooth removed, and so we will refer her to an oral surgeon in the [place] area. Discussed option of Medrol Dosepak to help with inflammation for now. Discussed that she would likely benefit from a customized bite guard or Matt appliance but discuss further with oral health specialist. 2. Anxiety (F41.9: Anxiety disorder, unspecified) Mood has been stable on current dose of Zoloft. No medication side effects reported. Continued the same. 3. Depression (F32.A: Depression, unspecified) Mood has been stable on current dose of Zoloft. No medication side effects reported. Continued the same. 4. BMI 31.0-31.9,adult (Z68.31: Body mass index [BMI] 31.0-31.9, adult) The standard range for ages 18 and older is >=18.5 and < 25 kg/m2. Your BMI today was above this range, this falls in the overweight to obese category and there are medical benefits to weight loss. We can offer counselling, referral, and/or medical support in addressing this problem. Your BMI and weight management will be followed at subsequent visits. 5. Obesity due to excess calories (E66.09: Other obesity due to excess calories) The standard range for ages 18 and older is >=18.5 and < 25 kg/m2. Your BMI today was above this range, this falls in the overweight to obese category and there are medical benefits to weight loss. We can offer counselling, referral, and/or medical support in addressing this problem. Your BMI and weight management will be followed at subsequent visits. 6. Non-smoker (Z78.9: Other specified health status) Patient non-smoker, stable. Follow up as needed. We want to touch base maybe sometime later this year to repeat blood work that was ordered previously. Portions of this record may have been created with voice recognition artificial intelligence software, specifically [employer] ([place] and or [employer]. Substitutions may have occurred due to the inherent limitations of voice recognition and artificial intelligence software. Documentation services were performed after patient or guardian consented to allow [employer] to record this visit. VIDAL cost specialist and provider reviewed before signing. VIDAL: Alethea Puente Follow-up No qualifying data available Patient Education Managing Anxiety, Adult Problem List/Past Medical (more content not included)... [facility] Comment on above: Result Comment: Elec tronically Signed By: Nika Bowden CNP\.br\Date and Time Signed: 04/12/23 06:59 EST\.br\Electronically Co-Signed By: Alethea Puente\.br\Date and Time Co-Signed: 04/08/23 17:41 EST Physician Referralon 024 Physician Referral [id number] 10 [id number] [facility] Ambulatory Visit Summaryon 0 04-08-2023 Ambulatory Visit Summary JOANIE BARR :1995 Visit Date:04/08/2023 Ambulatory Visit Instructions Your Diagnosis TMJ syndrome Anxiety Depression BMI 31.0-31.9,adult Obesity due to excess calories Non-smoker Your Care Team Attending Physician - Nika Bowden CNP Primary Care Physician - Nika Bowden CNP This Is Your Medications List cetirizine (cetirizine 5 mg oral tablet) epinephrine (Epipen 0.15 mg Kit) methylPREDNISolone (Medrol 4 mg Tab) sertraline (Zoloft 50 mg Tab) Procedures Performed Diagnostic laparoscopy (04/11/2021), Colonoscopy, Tonsillectomy. Discharge Vitals Heart Rate (Peripheral) 89 Blood Pressure 114/76 Height 158 cm Height 62 in Weight 78.3 kg Weight 172.26 lb BMI 31.37 What to do next Someone Will Contact You Regarding These Appointments [facility] [place] [place] External Ambulatory Referral, Other Referral, oral surgeon, 04/08/23 15:39:00 EST, TMJ syndrome Medications What How Much When Why Instructions New methylPREDNISolone (Medrol 4 mg Tab) 1 Packets By Mouth As Directed TMJ syndrome Duration: 6 Days as directed on package labeling Pickup at [facility] 1985 Unchanged cetirizine (cetirizine 5 mg oral tablet) 1 Tablets By Mouth 4 times a day Pickup at [facility] Unchanged epinephrine (Epipen 0.15 mg Kit) 1 Each Intramuscular As Directed as needed for Anaphylaxis Allergic urticaria Unchanged sertraline (Zoloft 50 mg Tab) 1 Tablets By Mouth Every day Pharmacy Information [facility] 1985: [address] [place], [place] [id number] [phone] Medications and Immunizations Administered Not Given influenza virus vaccine, inactivated, Postpone due to refusal Allergies amoxicillin (Hives) Problems Ongoing - Any problem that you are currently receiving treatment for. Abdominal pain Adult antisocial behavior Anxiety Bilateral numbness and tingling of arms and legs Chest pain Depression Dizziness Dysuria Encounter to establish care with new doctor Family history of autism History of depression Irritable bowel syndrome with diarrhea Left ear pain Left otitis media LGSIL Pap smear of vagina Low serum adrenocorticotropic hormone (ACTH) Low serum cortisol level Major depressive disorder, recurrent episode, mild with anxious distress Mid back pain Middle ear effusion Neck pain Neuropathy Obesity due to excess calories Otitis media Pelvic pain TMJ syndrome UTI (urinary tract infection) 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 Please share your experience with us by completing your survey. We appreciate your feedback and thank you for choosing us for your care. Education Materials Managing Anxiety, Adult After being diagnosed with anxiety, you may be relieved to know why you have felt or behaved a certain way. You may also feel overwhelmed about the treatment ahead and what it will mean for your life. With care and support, you can manage this condition. How to manage lifestyle changes Managing stress and anxiety Stress is your body's reaction to life changes and events, both good and bad. Most stress will last just a few hours, but stress can be ongoing and can lead to more than just stress. Although stress can play a major role in anxiety, it is not the same as anxiety. Stress is usually caused by something external, such as a deadline, test, or competition. Stress normally passes after the triggering event has ended. Anxiety is caused by something internal, such as imagining a terrible outcome or worrying that something will go wrong that will devastate you. Anxiety often does not go away even after the triggering event is over, and it can become long-term (chronic) worry. It is important to understand the differences between stress and anxiety and to manage your stress effectively so that it does not lead to an anxious response. Talk with your health care provider or a counselor to learn more about reducing anxiety and stress. He or she may suggest tension reduction techniques, such as: ? Music therapy. Spend time creating or listening to music that you enjoy and that inspires you. ? Mindfulness-based meditation. Practice being aware of your normal breaths while not trying to control your breathing. It can be done while sitting or walking. ? Centering prayer. This involves focusing on a word, phrase, or sacred image that means something to you and brings you peace. ? Deep breathing. To do this, expand your stomach and inhale slowly through your nose. Hold your breath for 3?5 seconds. Then exhale slowly, letting your stomach mu (more content not included)... Normal [facility] Patient Educationon 04-08-19 Patient Education Mental and Behaviora Health Managing Anxiety, Adult After being diagnosed with anxiety, you may be relieved to know why you have felt or behaved a certain way. You may also feel overwhelmed about the treatment ahead and what it will mean for your life. With care and support, you can manage this condition. How to manage lifestyle changes Managing stress and anxiety Stress is your body's reaction to life changes and events, both good and bad. Most stress will last just a few hours, but stress can be ongoing and can lead to more than just stress. Although stress can play a major role in anxiety, it is not the same as anxiety. Stress is usually caused by something external, such as a deadline, test, or competition. Stress normally passes after the triggering event has ended. Anxiety is caused by something internal, such as imagining a terrible outcome or worrying that something will go wrong that will devastate you. Anxiety often does not go away even after the triggering event is over, and it can become long-term (chronic) worry. It is important to understand the differences between stress and anxiety and to manage your stress effectively so that it does not lead to an anxious response. Talk with your health care provider or a counselor to learn more about reducing anxiety and stress. He or she may suggest tension reduction techniques, such as: ? Music therapy. Spend time creating or listening to music that you enjoy and that inspires you. ? Mindfulness-based meditation. Practice being aware of your normal breaths while not trying to control your breathing. It can be done while sitting or walking. ? Centering prayer. This involves focusing on a word, phrase, or sacred image that means something to you and brings you peace. ? Deep breathing. To do this, expand your stomach and inhale slowly through your nose. Hold your breath for 3?5 seconds. Then exhale slowly, letting your stomach muscles relax. ? Self-talk. Learn to notice and identify thought patterns that lead to anxiety reactions and change those patterns to thoughts that feel peaceful. ? Muscle relaxation. Taking time to tense muscles and then relax them. Choose a tension reduction technique that fits your lifestyle and personality. These techniques take time and practice. Set aside 5?15 minutes a day to do them. Therapists can offer counseling and training in these techniques. The training to help with anxiety may be covered by some insurance plans. Other things you can do to manage stress and anxiety include: ? Keeping a stress diary. This can help you learn what triggers your reaction and then learn ways to manage your response. ? Thinking about how you react to certain situations. You may not be able to control everything, but you can control your response. ? Making time for activities that help you relax and not feeling guilty about spending your time in this way. ? Doing visual imagery. This involves imagining or creating mental pictures to help you relax. ? Practicing yoga. Through yoga poses, you can lower tension and promote relaxation. Medicines Medicines can help ease symptoms. Medicines for anxiety include: ? Antidepressant medicines. These are usually prescribed for long-term daily control. ? Anti-anxiety medicines. These may be added in severe cases, especially when panic attacks occur. Medicines will be prescribed by a health care provider. When used together, medicines, psychotherapy, and tension reduction techniques may be the most effective treatment. Relationships Relationships can play a big part in helping you recover. Try to spend more time connecting with trusted friends and family members. ? Consider going to couples counseling if you have a partner, taking family education classes, or going to family therapy. ? Therapy can help you and others better understand your condition. How to recognize changes in your anxiety Everyone responds differently to treatment for anxiety. Recovery from anxiety happens when symptoms decrease and stop interfering with your daily activities at home or work. This may mean that you will start to: ? Have better concentration and focus. Worry will interfere less in your daily thinking. ? Sleep better. ? Be less irritable. ? Have more energy. ? Have improved memory. It is also important to recognize when your condition is getting worse. Contact your health care provider if your symptoms interfere with home or work and you feel like your condition is not improving. Follow these instructions at home: Activity ? Exercise. Adults should do the following: ? Exercise for at least 150 minutes each week. The exercise should increase your heart rate and make you sweat (moderate-intensity exercise). ? Strengthening exercises at least twice a week. ? Get the right amount and quality of sleep. Most adults need 7?9 hours of sleep each night. Lifestyle ? (more content not included)... Normal [facility] CHEMISTRYOrdered By: SYSTEM SYSTEM on 11-11-2021 Albumin [Mass/Vol] 4.1 g/dL Normal 3.3 - 5.0 gm/dL [facility] Albumin/Globulin [Mass ratio] 1.1 {ratio} Normal 1.1 - 2.2 [facility] ALP [Catalytic activity/Vol] 76 [iU]/d Normal 21 - 98 Int._Unit/L [facility] ALT No additional P-5'-P [Catalytic activity/Vol] 19 [iU]/d Normal 6 - 46 Int._Unit/L [facility] Anion gap [Moles/Vol] 12 mmol/L Normal 6 - 16 mEq/L [facility] AST [Catalytic activity/Vol] 24 [iU]/d Normal 5 - 43 Int._Unit/L [facility] Bilirubin [Mass/Vol] 0.3 mg/dL Normal 0.0 - 1 .1 mg/dL [facility] Bilirubin.direct [Mass/Vol] mg/dL Normal 0.1 - 0.4 mg/dL [facility] Bilirubin.indirect [Mass or moles/Vol] Unable to Calculate mg/dL Invalid Interpretation Code 0.1 - 0.9 mg/dL [facility] Calcium [Mass/Vol] 9.2 mg/dL Normal 8.9 - 11. 1 mg/dL [facility] Chloride [Moles/Vol] 105 mmol/L Normal 101 - 1 11 mmol/L [facility] CO2 [Moles/Vol] 24 mmol/L Normal 21 - 31 mmol/L [facility] Creatinine [Mass/Vol] 0.7 mg/dL Normal 0.5 - 1.3 mg/dL [facility] GFR/1.73 sq M.predicted among blacks MDRD (S/P/Bld) [Vol rate/Area] mL/min/1.73 m2 Normal >=59mL/min/1 .73 m2 [facility] S GFR/1.73 sq M.predicted among non-blacks MDRD (S/P/Bld) [Vol rate/Area] mL/min/1.73 m2 Normal >=59mL/min/1 .73 m2 [facility] S Globulin (S) [Mass/Vol] 3.6 g/dL Normal 1.4 - 4.0 gm/dL [facility] Glucose [Mass/Vol] 100 mg/dL Normal 55 - 199 mg/dL [facility] Potassium [Moles/Vol] 3.9 mmol/L Normal 3.5 - 5.3 mmol/L [facility] Protein [Mass/Vol] 7.7 g/dL Normal 6.0 - 7.8 gm/dL [facility] Sodium [Moles/Vol] 137 mmol/L Normal 135 - 145 mmol/L [facility] TSH Qn 1.66 m[IU]/L Normal 0.34 - 5.60 mcIU/mL [facility] Urea nitrogen [Mass/Vol] 12 mg/dL Normal 5 - 21 mg/dL [facility] Urea nitrogen/Creatinine [Mass ratio] 17 mg/mg Normal 10 - 20 [facility] HEMATOLOGYOrdered By: SYSTEM SYSTEM on 11-11-2021 Basophils/100 WBC (Bld) 0.5 % Normal 0.0 - 2.0 % [facility] Basophils/Leukocytes Auto (Bld) [Pure # fraction] 0.0 E9/L Normal 0.0 - 0.2 E9/L [facility] Eosinophils/100 WBC (Bld) 4.6 % Normal 0.0 - 8.0 % [facility] Eosinophils/Leukocyte s Auto (Bld) [Pure # fraction] 0.4 E9/L Normal 0.0 - 0.5 E9/L [facility] Lymphocytes/100 WBC (Bld) 28.6 % Normal 14.0 - 50.0 % [facility] Lymphocytes/Leukocyte s Auto (Bld) [Pure # fraction] 2.5 E9/L Normal 1.0 - 4.0 E9/L [facility] Monocytes/100 WBC (Bld) 5.0 % Normal 4.0 - 14.0 % [facility] Monocytes/Leukocytes Auto (Bld) [Pure # fraction] 0.4 E9/L Normal 0.2 - 1.0 E9/L [facility] Neutrophils/100 WBC (Bld) 61.3 % Normal 36.0 - 75.0 % [facility] Neutrophils/Leukocyte s Auto (Bld) [Pure # fraction] 5.5 E9/L Normal 2.0 - 7.5 E9/L [facility] HEMATOLOGYOrdered By: Ramila Meehan on 11-11-2021 Erythrocyte distribution width (RBC) [Ratio] 13.9 % Normal 10.9 - 14.2 % [facility] Hematocrit (Bld) [Volume fraction] 37.4 % Normal 34.0 - 46.0 % [facility] Hemoglobin (Bld) [Mass/Vol] 12.4 g/dL Normal 12.0 - 16.0 gm/dL [facility] MCH (RBC) [Entitic mass] 26.3 pg Low 27.0 - 34.0 pg [facility] MCHC (RBC) [Mass/Vol] 33.2 g/dL Normal 31.4 - 36.0 gm/dL [facility] MCV (RBC) [Entitic vol] 79.0 fL Low 80.0 - 100.0 fL [facility] Platelet mean volume (Bld) [Entitic vol] 7.3 fL Normal 6.4 - 10.8 fL [facility] Platelets (Bld) [#/Vol] 323.0 E9/L Normal 150.0 - 500.0 E9/L [facility] RBC (Bld) [#/Vol] 4.7 E12/L Normal 4.3 - 5.9 E12/L [facility] WBC corrected for nucl RBC Auto (Bld) [#/Vol] 8.9 E9/L Normal 4.0 - 11.0 E9/L [facility] Vital Signs Date Time Vital Sign Value Performing Clinician Zo hester 04-08-2023 15:18-0500 Blood Pressure Location Nika Riedy [facility] 04-08-2023 15:18-0500 Diastolic blood pressure 76 mm[Hg] Nika Riedy [facility] 04-08-2023 15:18-0500 Heart rate 89 /min Nika Riedy [facility] 04-08-2023 15:18-0500 SaO2% (BldA) [Mass fraction] 99 % Nika Riedy [facility] 04-08-2023 15:18-0500 Systolic blood pressure 114 mm[Hg] Nika Riedy [facility] 11-24-2022 12:16-0400 Blood Pressure Location Nika Riedy [facility] 11-24-2022 12:16-0400 Diastolic blood pressure 72 mm[Hg] Nika Riedy [facility] 11-24-2022 12:16-0400 Heart rate 92 /min Nika Riedy [facility] 11-24-2022 12:16-0400 SaO2% (BldA) [Mass fraction] 99 % Nika Riedy [facility] 11-24-2022 12:16-0400 Systolic blood pressure 118 mm[Hg] Nika Riedy [facility] 10-19-2022 13:58-0400 Blood Pressure Location Nika Riedy [facility] 10-19-2022 13:58-0400 Diastolic blood pressure 76 mm[Hg] Nika Riedy [facility] 10-19-2022 13:58-0400 Heart rate 97 /min Nika Riedy [facility] 10-19-2022 13:58-0400 SaO2% (BldA) [Mass fraction] 98 % Nika Riedy [facility] 10-19-2022 13:58-0400 Systolic blood pressure 108 mm[Hg] Nika Riedy [facility] 09-07-2022 14:07-0400 Blood Pressure Location Nika Riedy [facility] 09-07-2022 14:07-0400 Diastolic blood pressure 72 mm[Hg] Nika Riedy [facility] 09-07-2022 14:07-0400 Heart rate 97 /min Nika Riedy [facility] 09-07-2022 14:07-0400 SaO2% (BldA) [Mass fraction] 98 % Nika Riedy [facility] 09-07-2022 14:07-0400 Systolic blood pressure 110 mm[Hg] Nika Riedy [facility] 07-24-2021 10:22-0400 Blood Pressure Location [facility] 07-24-2021 10:22-0400 Diastolic blood pressure 78 mm[Hg] [facility] 07-24-2021 10:22-0400 Heart rate 98 /min [facility] 07-24-2021 10:22-0400 SaO2% (BldA) [Mass fraction] 98 % [facility] 07-24-2021 10:22-0400 Systolic blood pressure 128 mm[Hg] [facility] Encounters Encounter Date Encounter Type Care Provider Facility Start: 12-04-2023 End: 12-04-2023 ambulatory LATRELL DUMONT Not Available Start: 08-14-2023 End: 08-14-2023 ambulatory ROSANNE WILLSON Not Available Start: 05-17-2023 End: 05-17-2023 ambulatory Chris Sadler Facility:[facility] [place] Start: 04-08-2023 End: 04-08-2023 ambulatory FRONT OFFICE AGENT Nika Bowden Facility:[facility] Start: 04-08-2023 End: 04-08-2023 Patient encounter procedure Nika Antonia Riedy [facility] Start: 01-05-2023 End: 01-05-2023 ambulatory FRONT OFFICE AGENT Nika Bowden Facility:[facility] Start: 01-05-2023 End: 01-05-2023 Patient encounter procedure Nika Antonia Burnettedy [facility] Start: 11-24-2022 End: 11-24-2022 Patient encounter procedure Nika Antonia Brionesy [facility] Start: 10-19-2022 End: 10-19-2022 Patient encounter procedure Nika Brionesy [facility] Start: 09-07-2022 End: 09-07-2022 Patient encounter procedure Nika Brionesy [facility] Start: 08-20-2022 End: 08-20-2022 Patient encounter procedure Carolina Beatty [facility] Start: 07-21-2022 End: 07-21-2022 Patient encounter procedure Carolina Beatty [facility] Start: 06-25-2022 End: 06-25-2022 Patient encounter procedure Carolina Beatty [facility] Start: 05-28-2022 End: 05-28-2022 Patient encounter procedure Carolina Beatty [facility] Start: 04-21-2022 End: 04-21-2022 Lab Drop off Nika Bowden [facility] Start: 11-11-2021 End: 11-11-2021 Patient encounter procedure Constance ABDULLAHI [facility] Start: 07-24-2021 End: 07-24-2021 Patient encounter procedure Peggy Fernandes [facility] Start: 11-05-2019 End: 11-05-[address] INGRID MCCARTY Facility:[facility] Procedures Date Procedure Procedure Detail Performing Clinician Start: 04-11-2021 [facility] Immunizations Immunization Date Immunization Notes Care Provider Sami cross 10-29-2009 hepatitis B vaccine, adult dosage [facility] 10-29-2009 measles, mumps and rubella virus vaccine [facility] 10-29-2009 poliovirus vaccine, unspecified formulation [facility] 10-29-2009 tetanus toxoid, reduced diphtheria toxoid, and acellular pertussis vaccine, adsorbed [facility] 10-13-2001 haemophilus influenz ae type b vaccine, PRP-OMP conjugate [facility] 10-13-2001 measles, mumps and rubella virus vaccine [facility] 10-13-2001 poliovirus vaccine, unspecified formulation [facility] 07-24-1997 DTaP, unspecified formulation; Translations: [DTaP, unspecified formulation] [facility] 07-24-1997 measles, mumps and rubella virus vaccine [facility] 07-24-1997 varicella virus vaccine [facility] 1996 DTaP, unspecified formulation; Translations: [DTaP, unspecified formulation] [facility] 1996 hepatitis B vaccine, pediatric or pediatric/adolescent dosage [facility] 1996 Hib, unspecified formulation; Translations: [Hib, unspecified formulation] [facility] 1996 hepatitis B vaccine, pediatric or pediatric/adolescent dosage [facility] NEGATED: Highlighted row has not occurred!04-08-2023 influenza virus vaccine, unspecified formulation Nika Bowden [facility] NEGATED: Highlighted row has not occurred!04-21-2022 influenza virus vaccine, unspecified formulation Nika Bowden [facility] NEGATED: Highlighted row has not occurred!04-21-2022 SARS-CoV-2 mRNA (tozinameran 5y-11y) vaccine Nika Kal [facility] NEGATED: Highlighted row has not occurred!12-24-2020 SARS-CoV-2 (COVID-19) Ad26 vaccine, recombinant [facility] Payers Date Payer Category Payer Medicaid [id number] 1995 Unknown [id number] 1996 Unknown [id number] 1996 Unknown [id number] 1996 Unknown [id number] [id number] 1996 Unknown [id number] 2.16.8 [id number] 1996 Unknown [id number] 1959 Unknown [id number] 1959 Unknown [id number] Social History Date Type Detail Facility Start: 07-24-2021 End: 11-04-2021 Tobacco smoking status Ex-smoker (finding) [facility] Tobacco smoking status Never [facility] [place] Sex Assigned At Female [facility] Start: 04-21-2022 End: 04-08-2023 Tobacco smoking status Never smoked tobacco (finding) [facility] Functional Status Date Assessment Result Facility 04-08-2023 Functional Status N/A [facility] 11-24-2022 Functional Status N/A [facility] 10-19-2022 Functional Status N/A [facility] 09-07-2022 Functional Status N/A [facility] Clinical Notes 04-21-2022 to 04-08-2023 LaboratoryRadiologyLaboratoryRadiology Note Date & Type Note Facility 04-08-2023 Hospital Discharg e instructions Patient Education 04/08/2023 15:26:42 Managing Anxiety, Adult Managing Anxiety, Adult After being diagnosed with anxiety, you may be relieved to know why you have felt or behaved a certain way. You may also feel overwhelmed about the treatment ahead and what it will mean for your life. With care and support, you can manage this condition. How to manage lifestyle changes Managing stress and anxiety Stress is your body's reaction to life changes and events, both good and bad. Most stress will last just a few hours, but stress can be ongoing and can lead to more than just stress. Although stress can play a major role in anxiety, it is not the same as anxiety. Stress is usually caused by something external, such as a deadline, test, or competition. Stress normally passes after the triggering event has ended. Anxiety is caused by something internal, such as imagining a terrible outcome or worrying that something will go wrong that will devastate you. Anxiety often does not go away even after the triggering event is over, and it can become long-term (chronic) worry. It is important to understand the differences between stress and anxiety and to manage your stress effectively so that it does not lead to an anxious response. Talk with your health care provider or a counselor to learn more about reducing anxiety and stress. He or she may suggest tension reduction techniques, such as: Music therapy. Spend time creating or listening to music that you enjoy and that inspires you. Mindfulness-based meditation. Practice being aware of your normal breaths while not trying to control your breathing. It can be done while sitting or walking. Centering prayer. This involves focusing on a word, phrase, or sacred image that means something to you and brings you peace. Deep breathing. To do this, expand your stomach and inhale slowly through your nose. Hold your breath for 3 5 seconds. Then exhale slowly, letting your stomach muscles relax. Self-talk. Learn to notice and identify thought patterns that lead to anxiety reactions and change those patterns to thoughts that feel peaceful. Muscle relaxation. Taking time to tense muscles and then relax them. Choose a tension reduction technique that fits your lifestyle and personality. These techniques take time and practice. Set aside 5 15 minutes a day to do them. Therapists can offer counseling and training in these techniques. The training to help with anxiety may be covered by some insurance plans. Other things you can do to manage stress and anxiety include: Keeping a stress diary. This can help you learn what triggers your reaction and then learn ways to manage your response. Thinking about how you react to certain situations. You may not be able to control everything, but you can control your response. Making time for activities that help you relax and not feeling guilty about spending your time in this way. Doing visual imagery. This involves imagining or creating mental pictures to help you relax. Practicing yoga. Through yoga poses, you can lower tension and promote relaxation. Medicines Medicines can help ease symptoms. Medicines for anxiety include: Antidepressant medicines. These are usually prescribed for long-term daily control. Anti-anxiety medicines. These may be added in severe cases, especially when panic attacks occur. Medicines will be prescribed by a health care provider. When used together, medicines, psychotherapy, and tension reduction techniques may be the most effective treatment. Relationships Relationships can play a big part in helping you recover. Try to spend more time connecting with trusted friends and family members. Consider going to couples counseling if you have a partner, taking family education classes, or going to family therapy. Therapy can help you and others better understand your condition. How to recognize changes in your anxiety Everyone responds differently to treatment for anxiety. Recovery from anxiety happens when symptoms decrease and stop interfering with your daily activities at home or work. This may mean that you will start to: Have better concentration and focus. Worry will interfere less in your daily thinking. Sleep better. Be less irritable. Have more energy. Have improved memory. It is also important to recognize when your condition is getting worse. Contact your health care provider if your symptoms interfere with home or work and you feel like your condition is not improving. Follow these instructions at home: Activity Exercise. Adults should do the following: ?Exercise for at least 150 minutes each week. The exercise should increase your heart rate and make you sweat (moderate-intensity exercise). ?Strengthening exercises at least twice a week. Get the right amount and quality of sleep. Most adults need 7 9 hours of sleep each night. Lifestyle Eat a healthy diet that includes plenty of vegetables, fruits, whole grains, low-fat dairy products, and lean protein. ?Do not eat a lot of foods that are high in fats, added sugars, or salt (sodium). Make choices that simplify your life. Do not use any products that contain nicotine or tobacco. These products include cigarettes, chewing tobacco, and vaping devices, such as e-cigarettes. If you need help quitting, ask your health care provider. Avoid caffeine, alcohol, and certain wonv-ugf-byftjzq cold medicines. These may make you feel worse. Ask your pharmacist which medicines to avoid. General instructions Take gtud-wnd-qkkmfdo and prescription medicines only as told by your health care provider. Keep all follow-up visits. This is important. Where to find support You can get help and support from these sources: Self-help groups. Online and community organizations. A trusted spiritual leader. Couples counseling. Family education classes. Family therapy. Where to find more information You may find that joining a support group helps you deal with your anxiety. The following sources can help you locate counselors or support groups near you: Mental Health [place]: www.mentalhealth[place].net Anxiety and Depression Association of [place] (ADAA): www.adaa.org National [place] on Mental Illness (ROMAN): www.roman.org Contact a health care provider if: You have a hard time staying focused or finishing daily tasks. You spend many hours a day feeling worried about everyday life. You become exhausted by worry. You start to have headaches or frequently feel tense. You develop chronic nausea or diarrhea. Get help right away if: You have a racing heart and shortness of breath. You have thoughts of hurting yourself or others. If you ever feel like you may hurt yourself or others, or have thoughts about taking your own life, get help right away. Go to your nearest emergency department or: Call your local emergency services (853 in the [place] Call a suicide crisis helpline, such as the National Suicide Prevention Lifeline at or 921 in the [place] This is open 24 hours a day in the [place] Text the Crisis Text Line at 430719 (in the [place] Summary Taking steps to learn and use tension reduction techniques can help calm you and help prevent triggering an anxiety reaction. When used together, medicines, psychotherapy, and tension reduction techniques may be the most effective treatment. Family, friends, and partners can play a big part in supporting you. This information is not intended to replace advice given to you by your health care provider. Make sure you discuss any questions you have with your health care provider. Document Revised: 10/01/2021 Document Reviewed: 06/29/2021 [employer] Patient Education 2022 [employer]. [facility] 11-24-2022 Evaluation + Plan note Future Scheduled TestsDHEA 11/24/22ACTH 11/24/22Cortisol 11/24/22Testosterone Level Total 11/24/22XR Spine Thoracic 3 Views 11/24/22 [facility] 10-19-2022 Hospital Discharg e instructions Follow Up Care 10/19/2022 14:23:47 With:Nika Bowden CNP Address: [address] [place] [phone] When:Within 6 Week(s) Comments:review labs and medication [facility] 09-10-2022 Hospital Discharg e instructions Follow Up Care 09/10/2022 09:03:30 With:Nika Bowden CNP Address: [address] [place] [phone] When:Within 1 Month(s) Comments:establish care [facility] 04-21-2022 Evaluation + Plan note Diagnostic Tests PendingUrine Culture 04/21/22 [facility] Evaluation + Plan note Referrals to Other Providers Referred by: Peggy Lee [facility] Evaluation + Plan note Future Appointments Appointment Date:06/25/2022 10:00:00 AM Scheduled Provider:Carolina Carrillo Location:[facility] [place] [facility] Appointment Type:BH Therapy 60 Appointment Date:07/08/2022 11:00:00 AM Scheduled Provider:Carolina Carrillo Location:[facility] – [place] [facility] Appointment Type:BH Therapy 60 Appointment Date:07/21/2022 11:00:00 AM Scheduled Provider:Carolina Carrillo Location:[facility] – [place] [facility] Appointment Type:BH Therapy 60 [facility] Evaluation + Plan note Future Appointments Appointment Date:07/08/2022 11:00:00 AM Scheduled Provider:Carolina Carrillo Location:[facility] – [place] [facility] Appointment Type:BH Therapy 60 Appointment Date:07/21/2022 11:00:00 AM Scheduled Provider:Carolina Carrillo Location:[facility] – [place] [facility] Appointment Type:BH Therapy 60 [facility] Evaluation + Plan note Future Appointments Appointment Date:08/20/2022 02:00:00 PM Scheduled Provider:Carolina Carrillo Location:[facility] – [place] [facility] Appointment Type:BH Therapy 60 Appointment Date:09/10/2022 01:00:00 PM Scheduled Provider:Carolina Carrillo Location:[facility] – [place] [facility] Appointment Type:BH Therapy 60 Appointment Date:10/08/2022 01:00:00 PM Scheduled Provider:Carolina Carrillo Location:[facility] [place] [facility] Appointment Type:BH Therapy 60 [facility] Evaluation + Plan note Future Appointments Appointment Date:09/10/2022 01:00:00 PM Scheduled Provider:Carolina Carrillo Location:[facility] [place] [facility] Appointment Type:BH Therapy 60 Appointment Date:10/08/2022 01:00:00 PM Scheduled Provider:Carolina Carrillo Location:[facility] [place] [facility] Appointment Type:BH Therapy 60 [facility] Evaluation + Plan note Future Appointments Appointment Date:11/24/2022 12:20:00 PM Scheduled Provider:Nika Bowden CNP Location:[facility] Appointment Type: Open [facility] [place] Evaluation + Plan note Future Appointments Appointment Date:01/05/2023 12:40:00 PM Scheduled Provider:Nika Bowden CNP Location:[facility] Appointment Type: Open Future Scheduled TestsDHEA 11/24/22ACTH 11/24/22Cortisol 11/24/22Testosterone Level Total 11/24/22XR Spine Thoracic 3 Views 11/24/22 [facility] Hospital course Narrative No data available for this section [facility] Hospital Discharge instructions No data available for this section [facility] Progress note No data available for this section [facility] Reason for referral (narrative) , NOMSENTHas seen Dr. Lombardo in the past Referred by: Nika Bowden CNP [facility] Reason for referral (narrative) , [place] Referred by: Nika Bowden CNP [facility] Summary Purpose Family History No Family History Records Found No data available for this section No data available for this section No Family History Records FoundNo Family History Records Found Advance Directives No Advanced Directives Records FoundNo Advanced Directives Records FoundNo Advanced Directives Records Found Reason for Referral Referred by: Peggy Lee No data available for this section No data available for this section No data available for this section No data available for this section No data available for this section No data available for this section No data available for this section No data available for this section No data available for this section Additional Source Comments INFORMATION SOURCE (unrecogn ized section and content) DATE CREATED AUTHOR 07/25/2020 [facility] DATE CREATED AUTHOR AUTHOR'S ORGANIZ ATION 12/06/2023 [facility] EPIC DATE CREATED AUTHOR AUTHOR'S ORGANIZ ATION 12/13/2023 [facility] Care Team (unrecognized sect ion and content) Personnel Name: Constance ABDULLAHI MD Address: [address] [place] [address] [address] Name: Whitney Fournier Personnel Name: Constance ABDULLAHI MD Address: Address: [address] [place] [address] [address] Name: Whitney Fournier Personnel Name: Constance ABDULLAHI MD Address: Address: [address] [place] [address] [address] [facility] [place] [address]- [place] Name: Whitney Fournier Personnel Name: Constance ABDULLAHI MD Address: Address: [address] [place] [address] [address] [place] [address]- [place] Name: Whitney Fournier Personnel Name: Chantelle NUR PA-C Address: Address: [address] [place] [address]- Name: Whitney Fournier Personnel Name: Chantelle NUR PA-C Address: Address: [address] [place] [address]- [place] Name: Whitney Fournier Personnel Name: Kal NIÑO Nika D Address: Address: [address] [place] [address]- Name: Whitney Fournier Personnel Name: Kal NIÑO Nika D Address: Address: [address] [place], [place] [id number]- [place] Name: Whitney Fournier Personnel Name: Lexanai NIÑO Nika D Address: Address: [address] [place], [place] [id number]- Name: Whitney Fournier Personnel Name: Lexanai NIÑO Nika D Address: Address: [address] [place], [place] [id number]- Name: Whitney Fournier Personnel Name: Kal SALINAS Nika Antonia Address: Address: [address] [place] [address]- Name: Whitney Fournier FOR RECORDS PERTAINING TO PATIENTS WHO ARE OR HAVE BEEN ENROLLED IN A CHEMICAL DEPENDENCY/SUBSTANCEABUSE PROGRAM, SOME INFORMATION MAY BE OMITTED. This clinical summary was aggregated from multiple sources. Caution should be exercised in using it in the provision of clinical care. This summary normalizes information from multiple sources, and as a consequence, information in this document may materially change the coding, format and clinical context of patient data. In addition, data may be omitted in some cases. CLINICAL DECISIONS SHOULD BE BASED ON THE PRIMARY CLINICAL RECORDS. [facility]. provides no warranty or guarantee of the accuracy or completeness of information in this document.
[2024-02-11 11:45] LABS: HCG Qualitative NEGATIVE (NEGATIVE); Internal Control Within Normal Limits
--- NOTE | 2024-02-11 11:48 | CT_ITS ---
[address] [address] Patient Name: JOANIE GOMEZ MRN: [id number] date: 1995 Sex: F Assigned Patient Location: ER Current Patient Location: ER Accession/Order Number: [id number] Exam Date: 02/11/2024 12:07 Report Date: 02/11/2024 12:41 At the request of: FLORENCIA COHEN Procedure: CT abdomen pelvis wo con EXAMINATION: CT abdomen pelvis wo con HISTORY: RUQ pain , right lower quadrant pain, vomiting COMPARISON: No relevant comparison available. TECHNIQUE: Axial, Coronal, and Sagittal images were obtained without and/or with IV contrast as indicated by examination type. Dose reduction techniques were achieved by using automated exposure control and/or adjustment of mA and/or kV according to patient size and/or use of iterative reconstruction technique. FINDINGS: LUNG BASES: No visible pulmonary or pleural disease. LIVER: No enlargement, atrophy, suspicious density, or significant focal lesion. BILIARY: No dilatation or calcification. PANCREAS: No lesion, fluid collection, or abnormal duct dilatation. SPLEEN: No enlargement or focal lesion. ADRENALS: No mass or enlargement. KIDNEYS: No mass, obstruction, or calcification. BOWEL/MESENTERY: No visible mass, obstruction, or bowel wall thickening. AORTA/VASCULAR: No aneurysm or dissection. RETROPERITONEUM: No mass or adenopathy. LYMPH NODES: No adenopathy. URINARY BLADDER: No visible focal wall thickening, lesion, or calculus. PELVIC ORGANS: Suspect 2.0 cm cyst within right ovary. ABDOMINAL WALL: No mass or hernia. BONES: No bony lesion or fracture. OTHER: Negative. CT/CT abdomen pelvis wo con IMPRESSION: 1. No acute or specific findings to account for patient's symptoms. 2. Possible 2.0 cm cyst within right ovary. No surrounding free fluid or inflammatory changes. Electronically authenticated by: BEBO HUSSEIN Date: 02/11/2024 12:41
[2024-02-11 11:51] LABS: Alanine Aminotransferase 26 U/L (14-59); Albumin Globulin Ratio 0.9; Albumin Level 3.6 g/dL (3.4-5.0); Alkaline Phosphatase 81 U/L (46-116); Anion Gap 15.4; Aspartate Amino Transferase 24 U/L (15-37); BUN Creatinine Ratio 16.4; Bilirubin Total 0.6 mg/dL (0.2-1.0); Carbon Dioxide 22.9 mmol/L (21.0-32.0); Chloride 105 mmol/L (98-107); Estimated GFR (African America >60 (>=60 mL/min/1.73m^2); Estimated GFR (Non-African Ame >60 (>=60 mL/min/1.73m^2); Globulin 3.9 g/dL; Glucose 93 mg/dL (74-106); Potassium 4.3 mmol/L (3.5-5.1); Sodium 139 mmol/L (136-145); Total Protein 7.5 g/dL (6.4-8.2)
[2024-02-11 12:13] VITALS: BP 127/80; PULSE 96; O2SAT 99
--- NOTE | 2024-02-11 12:53 | US_ITS ---
[address] [address] Patient Name: JOANIE GOMEZ MRN: [id number] date: 1995 Sex: F Assigned Patient Location: ER Current Patient Location: ER Accession/Order Number: [id number] Exam Date: 02/11/2024 14:05 Report Date: 02/11/2024 14:56 At the request of: FLORENCIA COHEN Procedure: US pelvis transvaginal EXAMINATION: US pelvis transvaginal HISTORY: RLQ pain COMPARISON: CT abdomen pelvis 02/11/2024 TECHNIQUE: Transabdominal and/or transvaginal sonographic examination was performed as indicated by examination type. FINDINGS: UTERUS: Normal size and appearance. Uterus size: 7.8 x 4.3 x 4.8 cm ENDOMETRIUM: Normal homogeneous appearance. Endometrial thickness: 9 mm RIGHT OVARY: Normal size and appearance. Duplex Doppler demonstrates normal waveform and flow; resistive index 0.5. Ovary size: 3.4 x 2.8 x 2.6 cm LEFT OVARY: Contains a 2.0 cm benign-appearing cyst/dominant follicle. Duplex Doppler demonstrates normal waveform and flow; resistive index 0.4. Ovary size: 2.9 x 1.4 x 2.4 cm CUL-DE-SAC: Unremarkable. No significant free fluid. BLADDER: Unremarkable. OTHER: None. US/US pelvis transvaginal IMPRESSION: 1. Right ovarian benign-appearing cyst versus dominant follicle, 2.0 cm diameter; of uncertain clinical significance. 2. Otherwise unremarkable pelvis. Electronically authenticated by: BEBO HUSSEIN Date: 02/11/2024 14:56
[2024-02-11] MEDS: ONDANSETRON PF 4 MG/2 ML VIAL IV (12:58)
[2024-02-11 13:01] VITALS: BP 123/75; PULSE 102; O2SAT 99
[2024-02-11] MEDS: KETOROLAC TROMETHAMINE 30 MG/ML VIAL 15 MG IVP (13:01)
[2024-02-11 14:56] VITALS: BP 102/65; PULSE 102; O2SAT 97
--- NOTE | 2024-02-11 15:39 | ED_ITS ---
HPI - Abdominal Pain General Chief Complaint: Abdominal Pain Stated Complaint: ABDOMINAL PAIN Time Seen by Provider: 02/11/24 11:13 Source: patient Mode of arrival: Wheelchair History of Present Illness HPI narrative: Patient presented to us with a right lower quadrant pain that been going on at least for the last 2 to 3 days, she was some nausea, patient had her menstruation within the month She denies any fever chills or cough or any other The patient abdominal pain in the right lower quadrant not radiating associated with nausea She have no history of any abdominal surgery Related Data Home Medications ?Medication ?Instructions ?Recorded ?Confirmed cetirizine 10 mg tablet 40 mg PO DAILY 10/16/22 02/11/24 fluticasone propionate 50 1 spray intranasal DAILY 10/16/22 02/11/24 mcg/actuation nasal spray,suspension Previous Rx's ?Medication ?Instructions ?Recorded doxycycline hyclate 100 mg capsule 100 mg PO BID 7 days #14 caps 10/22/22 ibuprofen 600 mg tablet 600 mg PO TID PRN pain #20 tabs 02/11/24 ondansetron 4 mg disintegrating 4 mg PO Q8H PRN nausea and 02/11/24 tablet vomiting 48 hours #10 tabs Allergies Allergy/AdvReac Type Severity Reaction Status Date / Time amoxicillin Allergy Severe Verified 10/22/22 03:15 Review of Systems ROS Status of ROS 10 or more systems reviewed and unremark able except as noted in history and below PFSH PFSH Social History Smoking status: Former smoker Little interest or pleasure in doing things: not at all Feeling down, depressed, or hopeless: not at all Exam Narrative Exam Narrative: Nurses notes and vital signs reviewed and patient is not hypoxic. General: Well-appearing and in no apparent distress. Skin: Warm, dry, no pallor noted. No rash. Head: Normocephalic, atraumatic. Neck: Supple, non-tender. Eye: Pupils are equal, round and EOMI. No scleral icterus. Ears, Nose, Mouth, and Throat: TM are clear, no nasal mucosal hypertrophy. Oral mucosa is moist, no posterior oropharynx erythema, uvula is mid-line Cardiovascular: Regular Rate and Rhythm without murmur, gallop or rub. Respiratory: No accessory muscle use or respiratory distress. Lungs are clear to auscultation, no wheezing, rales or rhonchi Chest Wall: no tenderness Back: No midline thoracic or lumbar vertebral tenderness. No CVA tenderness Musculoskeletal: normal ROM, no calf or popliteal tenderness, no lower extremity edema/swelling GI: Abdomen is soft, non-distended. Normal bowel sounds. No masses appreciated. Tenderness no palpation of the right lower quadrant with a negative Butt's and negative McBurney no rebound, guarding, or rigidity noted. Neurological: A&O x4. No cranial nerve dysfunction observed. No truncal ataxia. Moves all extremities. Sensation intact. Psychiatric: Cooperative and interactive. Normal mood and affect. Constitutional Vital Signs, click to edit/add: Last Vital Signs Temp 97.7 F 02/11/24 11:05 Pulse 102 H 02/11/24 14:56 Resp 18 02/11/24 14:56 BP 102/65 02/11/24 14:56 Pulse Ox 97 02/11/24 14:56 O2 Del Method Room Air 02/11/24 14:56 Course Vital Signs Vital signs: Vital Signs Temperature 97.7 F 02/11/24 11:05 Pulse Rate 104 H 02/11/24 11:05 Respiratory Rate 18 02/11/24 11:05 Blood Pressure 131/87 02/11/24 11:05 Pulse Oximetry 97 02/11/24 11:05 Oxygen Delivery Method Room Air 02/11/24 11:05 Temperature 97.7 F 02/11/24 11:05 Pulse Rate 102 H 02/11/24 14:56 Respiratory Rate 18 02/11/24 14:56 Blood Pressure 102/65 02/11/24 14:56 Pulse Oximetry 97 02/11/24 14:56 Oxygen Delivery Method Room Air 02/11/24 14:56 MDM - Abdominal Pain MDM Narrative Medical decision making narrative: The patient CBC and chemistry showed no acute significant pathology with a mild leukocytosis test was negative CAT scan of the abdomen pelvis shows no acute appendicitis picture but does show a ovarian cyst Pelvic ultrasound confirmed that the patient have a cyst that almost 2 cm I explained to the patient that right now she would just continue supportive care hydration and 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 The patient agrees with the following Diagnosis and Treatment plan and the patient will be discharged home. Lab Data Labs: Lab Results 02/11/24 Range/Units 11:25 WBC 12.5 H (4.0-11.0) 10^3/uL RBC 4.94 (4.20-5.40) 10^6/uL Hgb 13.0 (12.0-16.0) g/dL Hct 39.7 (36.0-48.0) % MCV 80.4 L (81.0-99.0) fL MCH 26.3 L (26.7-34.0) pg MCHC 32.7 (29.9-35.2) g/dL RDW 12.5 (11.0-15.0) % Plt Count 282 (150-450) 10^3/uL MPV 9.0 L (9.5-13.5) fL Neut % (Auto) 83.7 H (43.0-75.0) % Lymph % (Auto) 11.6 L (20.5-60.0) % [place] % (Auto) 3.2 (1.7-12.0) % Eos % (Auto) 1.1 (0.9-7.0) % Baso % (Auto) 0.2 (0.2-2.0) % Neut # (Auto) 10.5 H (1.4-6.5) 10^3/uL Lymph # (Auto) 1.5 (1.2-3.8) 10^3/uL [place] # (Auto) 0.4 (0.3-0.8) 10^3/uL Eos # (Auto) 0.1 (0.0-0.7) 10^3/uL Baso # (Auto) 0.0 (0.0-0.1) 10^3/uL Abs Immat Gran (auto) 0.03 (0.00-0.03) 10^3/uL Imm/Tot Granulo (auto) 0.2 (0.0-0.5) % Sodium 139 (136-145) mmol/L Potassium 4.3 (3.5-5.1) mmol/L Chloride 105 (98-107) mmol/L Carbon Dioxide 22.9 (21.0-32.0) mmol/L Anion Gap 15.4 BUN 12.0 (7.0-18.0) mg/dL Creatinine 0.73 (0.55-1.02) mg/dL Est GFR ( Amer) >60 (>=60 mL/min/1.73m^2) Est GFR (Non-Af Amer) >60 (>=60 mL/min/1.73m^2) BUN/Creatinine Ratio 16.4 Glucose 93 (74-106) mg/dL Calcium 9.0 (8.5-10.1) mg/dL Total Bilirubin 0.6 (0.2-1.0) mg/dL AST 24 (15-37) U/L ALT 26 (14-59) U/L Alkaline Phosphatase 81 (46-116) U/L Total Protein 7.5 (6.4-8.2) g/dL Albumin 3.6 (3.4-5.0) g/dL Globulin 3.9 g/dL Albumin/Globulin Ratio 0.9 Serum HCG, Qual Negative (NEGATIVE) Discharge Plan Discharge Chief Complaint: Abdominal Pain Clinical Impression: Ovarian cyst Patient Disposition: Home, Self-Care Time of Disposition Decision: 15:35 Condition: Good Prescriptions / Home Meds: New ibuprofen 600 mg tablet 600 mg PO TID PRN (Reason: pain) Qty: 20 0RF ondansetron 4 mg tablet,disintegrating 4 mg PO Q8H PRN (Reason: nausea and vomiting) 2 Days Qty: 10 0RF No Action cetirizine 10 mg tablet 40 mg PO DAILY fluticasone propionate 50 mcg/actuation spray,suspension 1 spray INTRANASAL DAILY doxycycline hyclate 100 mg capsule 100 mg PO BID 7 Days Qty: 14 0RF Print Language: New Zealander Instructions: Ovarian Cyst (ED) Referrals: JOYA ABDULLAHI [Primary Care Provider] - 1 week
== END 2024-02-11 15:44 | disposition home or self-care (01) ==
PROVIDERS: Emergency Provider Emergency Medicine; PCP Family Medicine
DX: N83.201 Unspecified ovarian cyst, right side (principal); Z87.891 Personal history of nicotine dependence
CPT/HCPCS: 36415; 74176; 76830; 80053; 84703; 85025; 96374; 96375; 99285; J1885; J2405

== ENCOUNTER 2024-04-13 20:48 | Emergency (ER) | payer OTHER, SELFPAY ==
[2024-04-13 21:02] VITALS: BP 178/81; PULSE 96; TEMP 36.6; O2SAT 98; BMI 34.0
--- NOTE | 2024-04-13 21:11 | XR_ITS ---
The [address] [address] Patient Name: JOANIE GOMEZ MRN: [id number] date: 1995 Sex: F Assigned Patient Location: ER Current Patient Location: ER Accession/Order Number: [id number] Exam Date: 04/13/2024 21:25 Report Date: 04/13/2024 21:55 At the request of: JOSH MEDLEY Procedure: XR foot RT min 3V PROCEDURE: XR foot RT min 3V, XR ankle RT min 3V HISTORY: twisted ankle falling down stairs 3 days ago; pain on bottom of foot COMPARISON: None. FINDINGS: BONES:No fracture, acute abnormality, or significant arthropathy. SOFT TISSUES:No visible soft tissue swelling. EFFUSION:None visible. OTHER: Negative. XR/XR foot RT min 3V IMPRESSION: 1. No acute bone abnormality. Electronically authenticated by: BEBO HUSSEIN Date: 04/13/2024 21:55
--- NOTE | 2024-04-13 21:11 | XR_ITS ---
The [address] [address] Patient Name: JOANIE GOMEZ MRN: [id number] date: 1995 Sex: F Assigned Patient Location: ER Current Patient Location: ER Accession/Order Number: [id number] Exam Date: 04/13/2024 21:25 Report Date: 04/13/2024 21:55 At the request of: JOSH MEDLEY Procedure: XR ankle RT min 3V PROCEDURE: XR foot RT min 3V, XR ankle RT min 3V HISTORY: twisted ankle falling down stairs 3 days ago; pain on bottom of foot COMPARISON: None. FINDINGS: BONES:No fracture, acute abnormality, or significant arthropathy. SOFT TISSUES:No visible soft tissue swelling. EFFUSION:None visible. OTHER: Negative. XR/XR ankle RT min 3V IMPRESSION: 1. No acute bone abnormality. Electronically authenticated by: BEBO HUSSEIN Date: 04/13/2024 21:55
--- OUTSIDE RECORDS SUMMARY | 2024-04-13 21:13 | XMS_ITS | CCD ---
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 [facility] Care Team Providers Care Combatant Diver Qualified Name Role Phone LUL, DR INGRID Mas Attending Unavailross MCCARTY, DR INGRID Mas Admitting UnavailDR TAMMY Fernandez Primary Care Unavailable JABARI PENA Consulting Unavailable Constance ABDULLAHI Primary Care Physician Whitney Fournier Unavailable Unavailable Chantelle NUR Primary Care Physician Nika Bowden Primary Care Physician [phone] ROSANNE WILLSON Attending Unavailable LATRELL HOUSTON Attending Unavailable Unallocated , Noms Provider Primary Care Provi germaine Chris Sadler Attending Unavailable Chris Sadler Admitting Unavailable Chris Sadler Attending Unavailable Chris Sadler Admitting Unavailable Chris Sadler Attending Unavailable Chris Sadler Admitting Unavailable Allergies Allergy Classification Reported Allergen(s) Allergy Type Date of Onset Reaction(s) Facility Penicillins (antibiotic) (1 source) Amoxicillin Drug Allergy 11-05-2019 [facility] Repository (16 sources) Amoxicillin; Translations: [amoxicillin] Drug Allergy 10-10-2022 [facility] [place] Medications Current Medications Medication Drug Class(es) Dates Sig (Normalized) Sig (Original) Acidophilus Probiotic Blend oral capsule (1 source) Start: 04-21-2022 End: 05-21-2022 take 1 capsule by mouth once daily Acidophilus Probiotic Blend oral capsule 1 cap(s), Oral, Daily for 30 day(s), 30 cap(s), Refill(s) 0, [facility], 158, cm, 04/21/22 14:33:00 EST, [...] day(s), # 6 tab(s), Refills(s) 0, Pharmacy: [facility], 158, cm, 09/07/22 14:09:00 EDT, Height/Length Dosing, 81.8, kg, 10/19/22 13:59:00 EDT, Weight Dosing Start Date: 10/19/22 Stop Date: 10/24/22 Status: Ordered cetirizine hydrochloride 5 mg oral tablet (13 sources) Histamine-1 Receptor Antagonist Start: 03-07-2024 take 1 tablet by mouth four times daily cetirizine 5 mg oral tablet See Instructions, Take 1 tablet by mouth 4 times daily, # 120 tab(s), Refills(s) 0, Pharmacy: [facility], 158, cm, 04/08/23 15:24:00 EST, Height/Length Dosing, 78.3, kg, 04/08/23 15:24:00 EST, Weight Dosing Start Date: 03/07/24 Status: Ordered Start: 04-08-2023 take 1 tablet by bo four times daily cetirizine 5 mg oral tablet 5 mg = 1 tab(s), Oral, QID, # 120 tab(s), Refills(s) 3, Pharmacy: [facility], 158, cm, 04/08/23 15:24:00 EST, Height/Length Dosing, 78.3, kg, 04/08/23 15:24:00 EST, Weight Dosing Start Date: 04/08/23 Status: Ordered Start: 11-24-2022 take 1 tablet by bo four times daily cetirizine 5 mg oral tablet 5 mg = 1 tab(s), Oral, QID, # 120 tab(s), Refills(s) 3, Pharmacy: [facility], 158, cm, 11/24/22 12:18:00 EDT, Height/Length Dosing, 81.3, kg, 11/24/22 12:18:00 EDT, Weight Dosing Start Date: 11/24/22 Status: Ordered Start: 09-21-2022 take 2 tablets by mo [facility] in the morning cetirizine (ZyrTEC) 10 MG tablet Indications: Chronic rhinitis Take 2 tablets (20 mg) by mouth in the morning and 2 tablets (20 mg) before bedtime. 120 tablet 3 09/21/2022 Active Start: 04-21-2022 take 1 tablet by [facility] once daily cetirizine 5 mg oral tablet [...] day(s), # 14 tab(s), Refills(s) 0, Pharmacy: [facility], 158, cm, 04/21/22 14:33:00 EST, Height/Length Dosing, 79.7, kg, 04/21/22 14:33:00 EST, Weight Dosing Start Date: 04/21/22 Stop Date: 04/28/22 Status: Ordered EPINEPHrine (13 sources) alpha-Adrenergic Agonist, beta-Adrenergic Agonist, Catecholamine Start: 08-05-2023 inject 0.15 mg by intramuscular injection once as needed epinephrine 0.15 mg Inj kit 0.15 mg, IntraMuscular, Once, PRN Anaphylaxis, # 1 EA, Refills(s) 1, Pharmacy: [facility], 158, cm, 04/08/23 15:24:00 EST, Height/Length Dosing, 78.3, kg, 04/08/23 15:24:00 EST, Weight Dosing Start Date: 08/05/23 Status: Ordered Start: 05-05-2022 Epipen 0.15 mg Kit 0.15 mg = 1 EA, IntraMuscular, As Directed, PRN Anaphylaxis, # 1 EA, Refills(s) 0, Pharmacy: [facility], 157.9, cm, 07/24/21 10:31:00 EDT, Height/Length Dosing, 75.9, kg, 07/24/21 10:31:00 EDT, Weight Dosing Start Date: 07/24/21 Status: Ordered Start: 07-24-2021 Epipen 0.15 mg Kit 0.15 mg = 1 EA, IntraMuscular, As Directed, PRN Anaphylaxis, # 1 EA, Refills(s) 0, Pharmacy: [facility], 157.9, cm, 07/24/21 10:31:00 EDT, Height/Length Dosing, 75.9, kg, 07/24/21 10:31:00 EDT, Weight Dosing Start Date: 07/24/21 Status: Ordered FLUoxetine 20 mg oral capsule (10 sources) Serotonin Reuptake Inhibitor Start: 04-21-2022 End: 07-20-2022 take 1 capsule by mouth three times daily Prozac 20 mg Cap 20 mg = 1 cap(s), Oral, TID, X 30 day(s), # 90 cap(s), Refills(s) 2, Pharmacy: [facility], 158, cm, 04/21/22 14:33:00 EST, Height/Length Dosing, 79.7, kg, 04/21/22 14:33:00 EST, Weight Dosing Start Date: 04/21/22 Stop Date: 07/20/22 Status: Ordered Start: 11-11-2021 take 1 capsule by [facility] once daily FLUoxetine 20 mg Cap 20 mg = 1 cap(s), Oral, Daily, # 30 cap(s), Refills(s) 5, Pharmacy: [facility], 157.9, cm, 11/04/21 14:05:00 EDT, Height/Length Dosing, 82.1, kg, 11/04/21 14:08:00 EDT, Weight Dosing Start Date: 11/11/21 Status: Ordered fluticasone propionate 0.05 mg/actuat metered dose nasal spray (2 sources) Corticosteroid Start: 05-26-2022 take 2 spray(s) nasal route in the morning fluticasone (Flonase) 50 MCG/ACT nasal spray Administer 2 sprays into each nostril in the morning. 05/26/2022 Active hyoscyamine sulfate 0.125 mg oral tablet (1 source) Start: 11-04-2021 take 1 tablet by mouth four times daily as needed for muscle spasms Levsin 0.125 mg oral tablet 0.125 mg = 1 tab(s), Oral, QID, PRN for spasm, # 40 tab(s), Refills(s) 5, Pharmacy: [facility], 157.9, cm, 11/04/21 14:05:00 EDT, Height/Length Dosing, 82.1, kg, 11/04/21 14:08:00 EDT, Weight Dosing Start Date: 11/04/21 Status: Ordered ibuprofen 800 mg oral tablet (2 sources) Nonsteroidal Anti-inflammatory Drug Start: 08-14-2023 take 1 tablet by mouth three times daily at mealtime as needed for pain ibuprofen 800 MG tablet Indications: Acute suppurative otitis media of right ear 1 po tid with food prn pain 30 tablet 08/14/2023 Active Lactobacillus acidophilus (1 source) Start: 11-24-2022 End: 12-08-2022 take 1 tablet by mouth twice daily Acidophilus oral tablet 1 tab, Oral, BID for 14 day(s), 28 EA, Refill(s) 0, [facility], 158, cm, 11/24/22 12:18:00 EDT, [...] # 7 tab(s), Refills(s) 0, Pharmacy: [facility], 158, cm, 11/24/22 12:18:00 EDT, Height/Length [...] day(s), # 21 tab(s), Refills(s) 0, Pharmacy: [facility], 158, cm, 04/08/23 15:24:00 EST, Height/Length Dosing, 78.3, kg, 04/08/23 15:24:00 EST, Weight Dosing Start Date: 04/08/23 Stop Date: 04/14/23 Status: Ordered Start: 11-24-2022 End: 11-30-2022 Medrol 4 mg Tab = 1 packet(s ), Oral, As Directed, as directed on package labeling, X 6 day(s), # 21 tab(s), Refills(s) 0, Pharmacy: [facility], 158, cm, 11/24/22 12:18:00 EDT, [...] day(s), # 14 cap(s), Refills(s) 0, Pharmacy: [facility], 157.9, cm, 11/04/21 14:05:00 EDT, Height/Length Dosing, 82.1, kg, 11/04/21 14:08:00 EDT, Weight Dosing Start Date: 11/11/21 Stop Date: 11/18/21 Status: Ordered sertraline 50 mg oral tablet (7 sources) Serotonin Reuptake Inhibitor Start: 10-19-2022 End: 12-04-2023 take 1 tablet by mouth once daily Zoloft 50 mg Tab 50 mg = 1 tab(s), Oral, Daily, # 90 tab(s), Refills(s) 4, Pharmacy: [facility], 158, cm, 04/08/23 15:24:00 EST, Height/Length Dosing, 78.3, kg, 04/08/23 15:24:00 EST, Weight Dosing Start Date: 08/05/23 Status: Ordered traMADol hydrochloride 50 mg oral tablet (1 source) Opioid Agonist Start: 09-07-2022 take 1 tablet by mouth every eight hours as needed for pain traMADOL 50 mg Tab TAKE 1 TABLET BY MOUTH EVERY 8 HOURS NEEDED FOR PAIN Start Date: 09/07/22 Status: Ordered Completed/Discontinued Medications Medication Drug Class(es) Dates Sig (Normalized) Sig (Original) sulfamethoxazole 800 mg / trimethoprim 160 mg oral tablet (2 sources) Dihydrofolate Reductase Inhibitor Antibacterial, Sulfonamide Antimicrobial Start: 08-14-2023 End: 12-04-2023 take 1 tablet by mouth twice daily sulfamethoxazole- trimethoprim (Bactrim DS) 800-160 MG per tablet Indications: Acute suppr otitis media w spon rupt ear drum, left ear , Acute suppurative otitis media of right ear 1 po bid until all taken. 14 tablet 08/14/2023 12/04/2023 Discontinued (Therapy completed) Problems Active Problems Problem Classification Problem Date Documented Da te Episodic/Chronic Abdominal pain (20 sources) Abdominal pain; Translations: [Pain in pelvis] Onset: 3 Resolved: 3 11-04-2021 Episodic Allergic reactions (1 source) Allergic urticaria; Translations: [Allergic urticaria] Onset: 2 Episodic Anxiety disorders (20 sources) Anxiety; Translations: [Anxiety disorder] Onset: 3 10-10-2016 Chronic Asthma (15 sources) Exercise-induced asthma; Translations: [Exercise induced bronchospasm] Onset: 3 04-04-2021 Chronic Bacterial infection; unspecified site (15 sources) Chlamydial infection; Translations: [Chlamydial infection, unspecified] Onset: 3 Resolved: 3 08-06-2019 Episodic Cancer of other female genital organs (15 sources) Low grade squamous intraepithelial lesion on vaginal Papanicolaou smear; Translations: [Low grade squamous intraepithelial lesion on cytologic smear of vagina (LGSIL)] Onset: 3 Resolved: 3 07-14-2018 Episodic Conditions associated with dizziness or vertigo (9 sources) Dizziness and giddiness; Translations: [Dizziness and giddiness] Onset: 3 Episodic Disorders of teeth and jaw (3 sources) Arthralgia of temporomandibular joint; Translations: [Arthralgia of temporomandibular joint, unspecified side] Onset: 4 Episodic Genitourinary symptoms and ill-defined conditions (13 sources) Dysuria; Translations: [Dysuria] Onset: 3 04-21-2022 Episodic Hemorrhage during ; abruptio placenta; placenta previa (13 sources) Threatened miscarriage 12-24-2020 Episodic Mood disorders (20 sources) Depressive disorder; Translations: [Recurrent major depressive episodes, mild ] Onset: 3 04-21-2022 Chronic Nonspecific chest pain (10 sources) Chest pain; Translations: [Chest pain, unspecified] Onset: 3 Resolved: 3 Episodic Other ear and sense organ disorders (1 source) Otalgia, left ear; Translations: [Otalgia of left ear] Onset: 3 Episodic Other gastrointestinal disorders (15 sources) Irritable bowel syndrome with diarrhea; Translations: [Irritable bowel syndrome with diarrhea] Onset: 3 03-06-2020 Chronic Other nervous system disorders (14 sources) Neuropathy; Translations: [Polyneuropathy, unspecified] Onset: 3 11-04-2021 Chronic Other nervous system disorders (15 sources) Numbness of upper limb; Translations: [Anesthesia of skin] Onset: 3 04-04-2021 Episodic Other nervous system disorders (9 sources) Paresthesia; Translations: [Paresthesia of skin] Onset: 3 Episodic Other nervous system disorders (1 source) Anesthesia of skin; Translations: [Anesthesia of skin] Onset: 3 Episodic Other nutritional; endocrine; and metabolic disorders (16 sources) Obesity; Translations: [Other obesity due to excess calories] Onset: 2 Chronic Other nutritional; endocrine; and metabolic disorders (5 sources) Obese class I; Translations: [Body mass index (BMI) 30.0-30.9, adult] Onset: 2 Chronic Other nutritional; endocrine; and metabolic disorders (2 sources) Obesity caused by energy imbalance; Translations: [Other obesity due to excess calories] Onset: 3 11-26-2022 Chronic Other nutritional; endocrine; and metabolic disorders (1 source) Abnormal weight gain; Translations: [Abnormal weight gain] Onset: 3 Episodic Other nutritional; endocrine; and metabolic disorders (6 sources) Weight gain 09-07-2022 Episodic Other and delivery including normal (1 source) 12-24-2020 Episodic Other screening for suspected conditions (not mental disorders or infectious disease) (14 sources) Blood chemistry abnormal; Translations: [Other specified abnormal findings of blood chemistry] Onset: 3 Episodic Other skin disorders (13 sources) Eruption 12-24-2020 Episodic Other upper respiratory disease (2 sources) Allergic rhinitis caused by mold; Translations: [Other allergic rhinitis] Onset: 3 11-26-2022 Chronic Other upper respiratory disease (2 sources) Chronic rhinitis; Translations: [Chronic rhinitis] Onset: 3 Resolved: 3 11-26-2022 Chronic Otitis media and related conditions (17 sources) Otitis media; Translations: [Otitis media, unspecified, unspecified ear] Onset: 3 12-24-2020 Episodic Residual codes; unclassified (13 sources) Family history of autism; Translations: [Family history of other mental and behavioral disorders] Onset: 3 Resolved: 3 04-21-2022 Episodic Residual codes; unclassified (5 sources) Patient encounter status; Translations: [Other specified health status] Onset: 3 Episodic Screening and history of mental health and substance abuse codes (20 sources) Personal history of nicotine dependence; Translations: [H/O: Disorder] Onset: 0 Resolved: 3 Episodic Spondylosis; intervertebral disc disorders; other back problems (20 sources) Dorsalgia, unspecified; Translations: [Pain in thoracic spine] Onset: 0 Resolved: 3 Episodic Unclassified (17 sources) Patient encounter status 07-14-2018 Unclassified (4 sources) Otalgia of left ear 11-24-2022 Urinary tract infections (13 sources) Urinary tract infectious disease; Translations: [Urinary tract infection, site not specified] Onset: 3 Resolved: 3 04-21-2022 Episodic Viral infection (20 sources) Herpesvirus infection; 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] 04-04-2021 Episodic Past or Other Problems Problem Classification Problem Date Documented Da te Episodic/Chronic Fever of unknown origin (2 sources) Fever; Translations: [Fever, unspecified] 12-04-2023 Episodic Headache; including migraine (4 sources) Headache; Translations: [HEADACHE] Onset: 11-05-2019 Episodic Nausea and vomiting (1 source) Nausea; Translations: [NAUSEA] Onset: 11-17-2019 Episodic Unclassified (13 sources) Bipolar (qualifier value) 10-10-2016 Unclassified (20 sources) Onset: 11-02-2018 Resolved: 01-03-2021 08-08-2019 Results Test Name Value Interpretation Reference Range Facility C Urineon 04-08-2024 Bacteria identified Cx Nom (U) Microbiology PROCEDURE: Urine Culture [R1] SOURCE: U CleanCatch BODY SITE: COLLECTED DATE/TIME: 04/06/2024 17:37 EST RECEIVED DATE/TIME: 04/06/2024 22:58 EST START DATE/TIME: 04/06/2024 22:58 EST FREE TEXT SOURCE: Viktoriya GARIBAY, Chris Sadler MD, Chris Knight FINAL REPORTS Final Report [] Verified Date/Time: 04/08/2024 09:27 EST <10,000 cfu/ml Mixed skin contaminants Performing Locations R1: This test was performed at: [facility], [address] [place] [address], [id number]- , [place], Normal [facility] Comment on above: Performed By: #### 2 [id number] #### [facility] [address] [place] [address] HIV Screen 4th Generation wR fxon 04-08-2024 HIV 1+2 Ab+HIV1 p24 Ag IA Ql Non-Reactive Invalid Interpretation Code Non Reactive [facility] Comment on above: Result Comment: HIV- 1/HIV-2 antibodies and HIV-1 p24 antigen were NOT detected. There is no laboratory evidence of HIV infection. HIV Negative Performed at: [address] [id number] PhD Leigh Ann Sotelo Performed By: #### 9 [id number] #### [facility] [address] [place] [address] Hep Bs Agon 04-08-2024 HBV surface Ag IA Ql Negative Invalid Interpretation Code Negative [facility] Comment on above: Result Comment: Perf ormed at: [address] [id number] PhD Leigh Ann Sotelo Performed By: #### 2 [id number] #### [facility] [address] [place] [address] RPR with Conf Rfxon 04-08-19 25 Reagin Ab RPR Ql (S) Non-Reactive Invalid Interpretation Code Non Reactive [facility] Comment on above: Result Comment: Perf ormed at: [address] [id number] PhD Leigh Ann Sotelo Performed By: #### 1 [id number] #### [facility] [address] [place] [address] Rubella IgGon 04-08-2024 Rubella virus IgG Qn (S) 3.60 [IU]/mL Invalid Interpretation Code Immune >0.99 [facility] Comment on above: Result Comment: Non- immune <0.90 Equivocal 0.90 - 0.99 Immune >0.99 Performed at: [address] [id number] PhD Leigh Ann Sotelo Performed By: #### 1 [id number] #### [facility] [address] [place] [address] ABO/Rhon 04-06-2024 ABO/Rh Positive Invalid Interpretation Code [facility] Comment on above: Performed By: #### 2 [id number] #### [facility] [address] [place] [address] ABSCon 04-06-2024 ABSC Gel Interp Negative Normal [facility] Comment on above: Performed By: #### 1 [id number] #### [facility] [address] [place] [address] BLOOD BANKOrdered By: Flakita Helms on 04-06-2024 ABO/Rh Interp Positive Invalid Interpretation Code FT BB Subsection ABSC Gel Interp Negative (04/06/24 5:45 PM) Normal FT BB Subsection BhCG Quanton 04-06-2024 [place] [address] m[IU]/mL High 1-3 F [facility] Comment on above: Result Comment: 'F N ON < 1 - 3' ' 0.2 - 1 WEEK = 5 TO 50' ' 1 - 2 WEEKS = 50 - 500' ' 2 - 3 WEEKS = 100 - 5000' ' 3 - 4 WEEKS = 500 - 11914' ' 4 - 5 WEEKS = 1000 - 19640' ' 5 - 6 WEEKS = 86248 - 425353' ' 6 - 8 WEEKS = 23482 - 653627' ' 8 - 12 WEEKS = 59152 - 339132' Performed By: #### 2 [id number] #### [facility] [address] [place] [address] CBC w/ Auto Diffon 5 Basophils/100 WBC (Bld) 0.8 % Normal 0.0-2.0 [facility] Comment on above: Performed By: #### 2 [id number] #### [facility] [address] [place] [address] Basophils/Leukocytes Auto (Bld) [Pure # fraction] 0.1 E9/L Normal 0.0-0.2 [facility] Comment on above: Performed By: #### 2 [id number] #### [facility] [address] [place] [address] Eosinophils (Bld) [#/Vol] 0.2 E9/L Normal 0.0-0.5 [facility] Comment on above: Performed By: #### 2 [id number] #### [facility] [address] [place] [address] Eosinophils/100 WBC (Bld) 2.4 % Normal 0.0-8.0 [facility] Comment on above: Performed By: #### 2 [id number] #### [facility] [address] [place] [address] Erythrocyte distribution width (RBC) [Ratio] 13.6 % Normal 10.9-14.2 [facility] Comment on above: Performed By: #### 2 [id number] #### [facility] [address] [place] [address] Hematocrit (Bld) [Volume fraction] 37.4 % Normal 34.0-46.0 [facility] Comment on above: Performed By: #### 2 [id number] #### [facility] [address] [place] [address] Hemoglobin (Bld) [Mass/Vol] 12.7 g/dL Normal 12.0-16.0 [facility] Comment on above: Performed By: #### 2 [id number] #### [facility] [address] [place] [address] Lymphocytes (Bld) [#/Vol] 2.8 E9/L Normal 1.0-4.0 [facility] Comment on above: Performed By: #### 2 [id number] #### [facility] [address] [place] [address] Lymphocytes/100 WBC (Bld) 33.7 % Normal 14.0-50.0 [facility] Comment on above: Performed By: #### 2 [id number] #### [facility] [address] [place] [address] MCH (RBC) [Entitic mass] 27.2 pg Normal 27.0-34.0 [facility] Comment on above: Performed By: #### 2 [id number] #### [facility] [address] [place] [address] MCHC (RBC) [Mass/Vol] 34.0 g/dL Normal 31.4-36.0 [facility] Comment on above: Performed By: #### 2 [id number] #### [facility] [address] [place] [address] MCV (RBC) [Entitic vol] 80.1 fL Normal 80.0-100.0 [facility] Comment on above: Performed By: #### 2 [id number] #### [facility] [address] [place] [address] Monocytes (Bld) [#/Vol] 0.5 E9/L Normal 0.2-1.0 [facility] Comment on above: Performed By: #### 2 [id number] #### [facility] [address] [place] [address] Neutrophils (Bld) [#/Vol] 4.7 E9/L Normal 2.0-7.5 [facility] Comment on above: Performed By: #### 2 [id number] #### [facility] [address] [place] [address] Neutrophils/100 WBC (Bld) 57.2 % Normal 36.0-75.0 [facility] Comment on above: Performed By: #### 2 [id number] #### [facility] [address] [place] [address] Platelet 335.0 E9/L Normal 150.0-500.0 [facility] Comment on above: Performed By: #### 2 [id number] #### [facility] [address] [place] [address] Platelet mean volume (Bld) [Entitic vol] 7.5 fL Normal 6.4-10.8 [facility] Comment on above: Performed By: #### 2 [id number] #### [facility] [address] [place] [address] RBC (Bld) [#/Vol] 4.7 E12/L Normal 4.3-5.9 [facility] Comment on above: Performed By: #### 2 [id number] #### [facility] [address] [place] [address] WBC corrected for nucl RBC Auto (Bld) [#/Vol] 8.2 E9/L Normal 4.0-11.0 [facility] Comment on above: Performed By: #### 2 [id number] #### [facility] [address] [place] [address] CHEMISTRYOrdered By: SYSTEM SYSTEM on 04-06-2024 [place] [address] m[IU]/mL High 1 - 3 mIU/mL [facility] Comment on above: Result Comment: 'F N ON < 1 - 3' ' 0.2 - 1 WEEK = 5 TO 50' ' 1 - 2 WEEKS = 50 - 500' ' 2 - 3 WEEKS = 100 - 5000' ' 3 - 4 WEEKS = 500 - 68993' ' 4 - 5 WEEKS = 1000 - 04835' ' 5 - 6 WEEKS = 37177 - 735368' ' 6 - 8 WEEKS = 95776 - 823264' ' 8 - 12 WEEKS = 98017 - 271276' Progesterone Lvl 22.07 ng/mL Invalid Interpretation Code [facility] Comment on above: Result Comment: 'F N ON FOLLICULAR = 0.10 - 0.60' 'LUTEAL = 3.00 - 17.5' 'MIDLUTEAL = 3.30 - 18.6' 'POST-MENOPAUSE = 0.10 - 0.40' '-FIRST TRIMESTER = 8.30 - 66.5' 'SECOND TRIMESTER = 18.9 - 66.1' 'THIRD TRIMESTER = 35.8 - 312.4' 'MALES = 0.14 - 2.06' HEMATOLOGYOrdered By: SYSTEM SYSTEM on 04-06-2024 Basophils/100 WBC (Bld) 0.8 % Normal 0.0 - 2.0 % [facility] Basophils/Leukocytes Auto (Bld) [Pure # fraction] 0.1 E9/L Normal 0.0 - 0.2 E9/L [facility] Eosinophils (Bld) [#/Vol] 0.2 E9/L Normal 0.0 - 0.5 E9/L [facility] Eosinophils/100 WBC (Bld) 2.4 % Normal 0.0 - 8.0 % [facility] Erythrocyte distribution width (RBC) [Ratio] 13.6 % Normal 10.9 - 14.2 % [facility] Hematocrit (Bld) [Volume fraction] 37.4 % Normal 34.0 - 46.0 % [facility] Hemoglobin (Bld) [Mass/Vol] 12.7 g/dL Normal 12.0 - 16.0 gm/dL [facility] Lymphocytes (Bld) [#/Vol] 2.8 E9/L Normal 1.0 - 4.0 E9/L [facility] Lymphocytes/100 WBC (Bld) 33.7 % Normal 14.0 - 50.0 % [facility] MCH (RBC) [Entitic mass] 27.2 pg Normal 27.0 - 34.0 pg [facility] MCHC (RBC) [Mass/Vol] 34.0 g/dL Normal 31.4 - 36.0 gm/dL [facility] MCV (RBC) [Entitic vol] 80.1 fL Normal 80.0 - 100.0 fL [facility] Monocytes (Bld) [#/Vol] 0.5 E9/L Normal 0.2 - 1.0 E9/L [facility] Monocytes/100 WBC (Bld) 5.9 % Normal 4.0 - 14.0 % [facility] Neutrophils (Bld) [#/Vol] 4.7 E9/L Normal 2.0 - 7.5 E9/L [facility] Neutrophils/100 WBC (Bld) 57.2 % Normal 36.0 - 75.0 % [facility] Platelet 335.0 E9/L Normal 150.0 - 500.0 E9/L [facility] Platelet mean volume (Bld) [Entitic vol] 7.5 fL Normal 6.4 - 10.8 fL Remisol Heme RBC (Bld) [#/Vol] 4.7 E12/L Normal 4.3 - 5.9 E12/L Remisol Heme WBC corrected for nucl RBC Auto (Bld) [#/Vol] 8.2 E9/L Normal 4.0 - 11.0 E9/L Remisol Heme Progesteroneon 04-06-2024 Progesterone Lvl 22.07 ng/mL Invalid Interpretation Code [facility] Comment on above: Result Comment: 'F N ON FOLLICULAR = 0.10 - 0.60' 'LUTEAL = 3.00 - 17.5' 'MIDLUTEAL = 3.30 - 18.6' 'POST-MENOPAUSE = 0.10 - 0.40' '-FIRST TRIMESTER = 8.30 - 66.5' 'SECOND TRIMESTER = 18.9 - 66.1' 'THIRD TRIMESTER = 35.8 - 312.4' 'MALES = 0.14 - 2.06' Performed By: #### 2 [id number] #### [facility] [address] [place] [address] Laboratory - Microbiology an d Antimicrobial susceptibilityon 12-04-2023 SARS-CoV-2 (COVID-19) RNA MARGRET+probe Ql (Unsp spec) Positive [facility] No Panel Informationon 12-03 Interpretation and review of laboratory results Normal [facility] PAP [id number] 05-21-2023 Cytology report Cyto stain Doc (Cvx/Vag) Note Invalid Interpretation Code [facility] Comment on above: Result Comment: TEST S RESULT FLAG UNITS REF RANGE LAB Clinician Provided Cytology Information Source.............Endocervix No. of containers..01 ThinPrep Vial DIAGNOSIS: 01 NEGATIVE FOR INTRAEPITHELIAL LESION OR MALIGNANCY. Specimen adequacy: 01 Satisfactory for evaluation. Endocervical and/or squamous metaplastic cells (endocervical component) are present. Performed by: Alexys Suárez, Activities Assistant (ASCP) . 01 Note: Note 01 The Pap [...] High,A-Abnormal,AA-Critical Abnormal Performed at: 01 [facility] [address] [id number] Jen Pacheco MD, Performed at: [facility] [address] [id number] MD Junior Li Performed By: #### 3 [id number] #### [facility] [address] [place] [address] PAP [id number] 05-17-2023 Collection Technique BRUSH-SPATULA Normal F [facility] Comment on above: Performed By: #### 3 [id number] #### [facility] [address] [place] [address] Gynecological Body Site ENDOCERVIX Normal [facility] Comment on above: Performed By: #### 3 [id number] #### [facility] [address] [place] [address] Physician Orderon 05-17-2023 Physician Order [id number] #[id number] Normal [facility] CHEMISTRYOrdered By: SYSTEM SYSTEM on 11-11-2021 Albumin [...] MDRD (S/P/Bld) [Vol rate/Area] mL/min/1.73 m2 Normal >=59mL/min/1. 73 m2 FT Chem S GFR/1.73 sq M.predicted among non-blacks MDRD (S/P/Bld) [Vol rate/Area] mL/min/1.73 m2 Normal >=59mL/min/1. 73 m2 FT Chem S Globulin (S) [Mass/Vol] [...] Date Time Vital Sign Value Performing Clinician Facility 12-04-2023 11:49-0400 Body mass index (BMI) [Ratio] 34.58 kg/m2 Latrell Houston DO Work Phone: [facility] 12-04-2023 11:49-0400 Body temperature 99 [degF] Latrell Houston [employer] Work Phone: [facility] 12-04-2023 11:49-0400 Body weight 83.01 kg Latrell Houston [employer] Work Phone: [facility] 12-04-2023 11:49-0400 Diastolic blood pressure 60 mm[Hg] Latrell Houston [employer] Work Phone: [facility] 12-04-2023 11:49-0400 Heart rate 90 /min Latrell Houston DO Work Phone: [facility] 12-04-2023 11:49-0400 SaO2% (BldA) [Mass fraction] 98 % Latrell Houston DO Work Phone: [facility] 12-04-2023 11:49-0400 Systolic blood pressure 110 mm[Hg] Latrell Houston DO Work Phone: [facility] 04-08-2023 15:18-0500 Blood Pressure Location Nika Riedy [facility] 04-08-2023 15:18-0500 Diastolic blood pressure 76 mm[Hg] Nika Riedy [facility] 04-08-2023 15:18-0500 Heart rate 89 /min Nika Riedy [facility] 04-08-2023 15:18-0500 SaO2% (BldA) [Mass fraction] 99 % Nika Riedy [facility] 04-08-2023 15:18-0500 Systolic blood pressure 114 mm[Hg] Nika Riedy [facility] 11-24-2022 12:16-0400 Blood Pressure Location Nika Riedy [facility] 11-24-2022 12:16-0400 Diastolic blood pressure 72 mm[Hg] Nika Riedy [facility] 11-24-2022 12:16-0400 Heart rate 92 /min Nika Riedy [facility] 11-24-2022 12:16-0400 SaO2% (BldA) [Mass fraction] 99 % Nika Riedy [facility] 11-24-2022 12:16-0400 Systolic blood pressure 118 mm[Hg] Nika Riedy [facility] 10-19-2022 13:58-0400 Blood Pressure Location Nika Riedy [facility] 10-19-2022 13:58-0400 Diastolic blood pressure 76 mm[Hg] Nika Riedy [facility] 10-19-2022 13:58-0400 Heart rate 97 /min Nika Riedy [facility] 10-19-2022 13:58-0400 SaO2% (BldA) [Mass fraction] 98 % Nika Riedy [facility] 10-19-2022 13:58-0400 Systolic blood pressure 108 mm[Hg] Nika Riedy [facility] 09-07-2022 14:07-0400 Blood Pressure Location Nika Riedy [facility] 09-07-2022 14:07-0400 Diastolic blood pressure 72 mm[Hg] Nika Riedy [facility] 09-07-2022 14:07-0400 Heart rate 97 /min Nika Riedy [facility] 09-07-2022 14:07-0400 SaO2% (BldA) [Mass fraction] 98 % Nika Riedy [facility] 09-07-2022 14:07-0400 Systolic blood pressure 110 mm[Hg] Nika Bowden [facility] 07-24-2021 10:22-0400 Blood Pressure Location [facility] 07-24-2021 10:22-0400 Diastolic blood pressure 78 mm[Hg] [facility] 07-24-2021 10:22-0400 Heart rate 98 /min [facility] 07-24-2021 10:22-0400 SaO2% (BldA) [Mass fraction] 98 % [facility] 07-24-2021 10:22-0400 Systolic blood pressure 128 mm[Hg] [facility] Encounters Encounter Date Encounter Type Care Provider Facility Start: 04-06-2024 End: 04-06-2024 ambulatory Chris Knight Viktoriya Facility:[facility] Start: 04-06-2024 End: 04-06-2024 Patient encounter procedure Chris Sadler [facility] Start: 12-04-2023 End: 12-04-2023 ambulatory LATRELL HOUSTON Not Available Start: 12-04-2023 End: 12-04-2023 Office outpatient visit 25 minutes Latrell Houston DO Work Phone: [facility] Comment on above: COVID (Primary Dx); Fever, unspecified fever cause Start: 08-14-2023 End: 08-14-2023 ambulatory ROSANNE WILLSON Not Available Start: 05-17-2023 End: 05-17-2023 ambulatory Chris Sadler Facility:[facility] Start: 04-08-2023 End: 04-08-2023 Patient encounter procedure Nika Bowden [facility] Start: 01-05-2023 End: 01-05-2023 Patient encounter procedure Nika Brionesy [facility] Start: 11-24-2022 End: 11-24-2022 Patient encounter procedure Nika Burnettedy [facility] Start: 10-19-2022 End: 10-19-2022 Patient encounter procedure Nika Burnettedy [facility] Start: 09-07-2022 End: 09-07-2022 Patient encounter procedure Nika Brionesy [facility] Start: 08-20-2022 End: 08-20-2022 Patient encounter procedure Carolina K Jaci [facility] Start: 07-21-2022 End: 07-21-2022 Patient encounter procedure Carolina Maya Jaci [facility] Start: 06-25-2022 End: 06-25-2022 Patient encounter procedure Carolina Maya Jaci [facility] Start: 05-28-2022 End: 05-28-2022 Patient encounter procedure Carolina Maya Jaci [facility] Start: 04-21-2022 End: 04-21-2022 Lab Drop off Nika Burnettedy [facility] Start: 11-11-2021 End: 11-11-2021 Patient encounter procedure Constance ABDULLAHI [facility] Start: 07-24-2021 End: 07-24-2021 [facility] Start: 11-05-2019 End: 11-05-[address] INGRID MCCARTY Facility:[facility] Procedures Date Procedure Procedure Detail Performing Clinician Start: 12-04-2023 POCT COVID ANTIGEN Anth fabrizio Houston DO Work Phone: Start: 04-11-2021 Diagnostic laparoscopy Peggy Aranda Colonoscopy Peggy Aranda Tonsillectomy Peggy Aranda Plan of Treatment Date Care Activity Detail Author Start: 11-21-2023 Influenza vaccination Influenza Vacc ine (#1) [facility] Immunizations Immunization Date Immunization Notes Care Provider Sami cross 10-29-2009 hepatitis B vaccine, adult dosage [facility] 10-29-2009 measles, mumps and rubella virus vaccine [facility] 10-29-2009 poliovirus vaccine, unspecified formulation [facility] 10-29-2009 tetanus toxoid, reduced diphtheria toxoid, and acellular pertussis vaccine, adsorbed [facility] 10-13-2001 haemophilus influenz ae type b vaccine, PRP-OMP conjugate [facility] 10-13-2001 measles, mumps and rubella virus vaccine [facility] 10-13-2001 poliovirus vaccine, unspecified formulation [facility] 07-24-1997 DTaP, unspecified formulation; Translations: [DTaP, unspecified formulation] [facility] 07-24-1997 measles, mumps and rubella virus vaccine [facility] 07-24-1997 varicella virus vaccine [facility] 1996 DTaP, unspecified formulation; Translations: [DTaP, unspecified formulation] [facility] 1996 hepatitis B vaccine, pediatric or pediatric/adolescent dosage [facility] 1996 Hib, unspecified formulation; Translations: [Hib, unspecified formulation] [facility] 1996 hepatitis B vaccine, pediatric or pediatric/adolescent dosage [facility] NEGATED: Highlighted row has not occurred!04-08-2023 influenza virus vaccine, unspecified formulation Nika Burnetttabithakathy [facility] NEGATED: Highlighted row has not occurred!04-21-2022 influenza virus vaccine, unspecified formulation Nikajudith Bowden [facility] NEGATED: Highlighted row has not occurred!04-21-2022 SARS-CoV-2 mRNA (tozinameran 5y-11y) vaccine Nika Burnettanai [facility] NEGATED: Highlighted row has not occurred!12-24-2020 SARS-CoV-2 (COVID-19) Ad26 vaccine, recombinant [facility] Payers Date Payer Category Payer Medicaid [employer] [place] [id number] 2022-Present [address] [place] [address] [id number] 2022 Medicaid [id number] 1996 Unknown [id number] 1996 Unknown [id number] 1996 Unknown [id number] 1996 Unknown [id number] 1996 Unknown [id number] 1959 Unknown [id number] 1959 Unknown [id number] Social History Date Type Detail Facility Start: 07-24-2021 End: 11-04-2021 Tobacco smoking status Ex-smoker (finding) [facility] Tobacco smoking status Never [facility] Start: 08-14-2023 Sex Assigned At Female F [facility] Start: 04-21-2022 End: 04-08-2023 Tobacco smoking status Never smoked tobacco (finding) [facility] Start: 10-10-2022 Tobacco use and exposure Smokeless tobacco non-user [facility] Start: 12-04-2023 Alcoholic beverage intake Lifetime non-drinker (finding) [facility] Start: 08-14-2023 History of Social function [facility] Start: 1995 Sex assigned at Not on file [facility] Functional Status Date Assessment Result Facility 04-08-2023 Functional Status N/A [facility] 11-24-2022 Functional Status N/A [facility] 10-19-2022 Functional Status N/A [facility] 09-07-2022 Functional Status N/A [facility] Clinical Notes 04-21-2022 to 04-06-2024 Latrell Houston, DO - 12/04/2023 11:40 AM EDTLaboratoryRadiologyLaboratoryRadiology Note Date & Type Note Facility 04-06-2024 Evaluation + Plan note Diagnostic Tests PendingRubella Antibody IgG 04/06/24RPR with Conf Rfx 04/06/24Hepatitis B Surface Antigen 04/06/24Urine Culture 04/06/24HIV Screen 4th Generation wRfx 04/06/24 [facility] 12-04-2023 History of Presen t illness Narrative HPI: Historian of HPI: patient Joanie Barr is a 28 y.o. female who presents today to the Urgent Care with the following complaints and denials which have been present for 3 day(s) Pt exposed to covid C/O Denies Symptom Comments [x] [] Runny Nose [] [x] Difficulty Swallowing [x] [] Sore Throat [x] [] Cough Nonproductive [x] [] Ear Pain Bilateral [x] [] Fever [x] [] Chills [x] [] Nasal Congestion [x] [] Myalgia [x] [] Sinus Pain [x] [] Sinus Pressure Additional Comments: pt has taken Tylenol OTC medication without relief - positive around other covid positive people. - symptoms are beginng to improve. ROS: A complete system ROS was performed and negative aside from the pertinent positives noted in the HPI and PE. General: No acute distress. Awake and alert. Eyes: Normal conjunctiva, anicteric. No discharge. Neck: Neck is supple. mild cervical lymphadenopathy. Ears: b/l TM and canals clear and grossly wnl Oral: normal moist mucosa, no ulcers/lesions Throat: erythematous, normal b/l tonsils Nose: erythematous mucosa b/l, with out drainage CV: RRR without murmurs, rubs or gallops Respiratory: Respirations are non-labored. Lungs are clear to auscultation. Abdomen: soft, nontender, nondistended, no guarding or rebound. Skin: Warm. Diaphoretic, No rashes or ulcers. MSK: Moving all extremities appropriately. 1. COVID Covid positive URI w/ diarrhea. Vitals WNL. Advised to treat sxs w/ tylenol and motrin PRN, hydrate, and work note for 2x days, today and tomorrow. Advised to RTC if sxs worsen, discussed signs of secondary bacterial infection. VO. 2. Fever, unspecified fever cause - POCT COVID ANTIGEN documented in this encounter [facility] 04-08-2023 Hospital Discharg e instructions Patient Education [...] care provider. Avoid caffeine, alcohol, and certain yqei-siv-ytprhcd cold medicines. These may make you feel worse. Ask your pharmacist which medicines to avoid. General instructions Take sicn-wjl-ycrbtcy and prescription medicines only as told by [...] Depression Association of [place] (ADAA): www.adaa.org National [place] on Mental Illness (ROMAN): www.roman.org Contact a [...] department or: Call your local emergency services (578 in the [place] Call a suicide crisis helpline, such as the National Suicide Prevention Lifeline at or 990 in the [place] This is open 24 hours a day in the [place] Text the Crisis Text Line at 574498 (in the [place] Summary Taking steps to [...] provider. Document Revised: 10/01/2021 Document Reviewed: 06/29/2021 [employer] Patient Education 2022 [employer]. [facility] 11-24-2022 Evaluation + Plan note Future Scheduled TestsDHEA 11/24/22ACTH 11/24/22Cortisol 11/24/22Testosterone Level Total 11/24/22XR Spine Thoracic 3 Views 11/24/22 [facility] 10-19-2022 Hospital Discharg e instructions Follow Up Care 10/19/2022 14:23:47 With:Nika Bowden CNP Address: [address] [place] [phone] When:Within 6 Week(s) Comments:review labs and medication [facility] 09-10-2022 Hospital Discharg e instructions Follow [facility] 09/10/2022 09:03:30 With:Nika Bowden CNP Address: [address] [place] [phone] When:Within 1 Month(s) Comments[facility] Evaluation + Plan note Diagnostic Tests PendingUrine Culture 04/21/22 [facility] Evaluation + Plan note Referrals to Other Providers Referred by: Peggy Lee [facility] Medicine naaptol Evaluation + Plan note Future Appointments Appointment Date:06/25/2022 10:00:00 AM Scheduled Provider:Carolina Carrillo Location:[facility] Appointment Type:BH Therapy 60 Appointment Date:07/08/2022 11:00:00 AM Scheduled Provider:Carolina Carrillo Location:[facility] Appointment Type:BH Therapy 60 Appointment Date:07/21/2022 11:00:00 AM Scheduled Provider:Carolina Carrillo Location:[facility] Appointment Type:BH Therapy 60 [facility] Evaluation + Plan note Future Appointments Appointment Date:07/08/2022 11:00:00 AM Scheduled Provider:Carolina Carrillo Location:[facility] Appointment Type:BH Therapy 60 Appointment Date:07/21/2022 11:00:00 AM Scheduled Provider:Carolina Carrillo Location:[facility] Appointment Type:BH Therapy 60 [facility] Evaluation + Plan note Future Appointments Appointment Date:08/20/2022 02:00:00 PM Scheduled Provider:Carolina Carrillo Location:[facility] Appointment Type:BH Therapy 60 Appointment Date:09/10/2022 01:00:00 PM Scheduled Provider:Carolina Carrillo Location:[facility] Appointment Type:BH Therapy 60 Appointment Date:10/08/2022 01:00:00 PM Scheduled Provider:Carolina Carrillo Location:[facility] Appointment Type:BH Therapy 60 [facility] Evaluation + Plan note Future Appointments Appointment Date:09/10/2022 01:00:00 PM Scheduled Provider:Carolina Carrillo Location:[facility] Appointment Type:BH Therapy 60 Appointment Date:10/08/2022 01:00:00 PM Scheduled Provider:Carolina Carrillo Location:[facility] Appointment Type:BH Therapy 60 [facility] Evaluation + Plan note Future Appointments Appointment Date:11/24/2022 12:20:00 PM Scheduled Provider:Nika Bowden CNP [facility] Appointment Type:FM Open [facility] Evaluation + Plan note Future Appointments Appointment Date:01/05/2023 12:40:00 PM Scheduled Provider:Nika Bowden CNP Location:[facility] Appointment Type: Open Future Scheduled TestsDHEA 11/24/22ACTH 11/24/22Cortisol 11/24/22Testosterone Level Total 11/24/22XR Spine Thoracic 3 Views 11/24/22 [facility] Evaluation note Diagnosis COVID- Primary Fever, unspecified fever cause [facility] Narrative No data available for this section [facility] Hospital Discharge instructions No data available for this section [facility] Progress note No data available for this section [facility] , NOMSENTHas seen Dr. Lombardo in the past Referred by: Nika Bowden CNP [facility] Reason for referral (narrative) , [place] Referred by: Nika Bowden CNP [facility] Summary Purpose Family History No Family History Records Found No data available for this section No data available for this section No Family History Records Found No data available for this section No Family History Records FoundNo Family History Records FoundNo Family History Records FoundNo Family History Records FoundNo Family History Records FoundNo Family History Records FoundNo Family History Records FoundNo Family History Records FoundNo Family History Records FoundNo Family History Records FoundNo Family History Records [...] Records Found Reason for Referral Referred by: Rosi ALVARADO, Peggy Fernandes No data available for this section No [...] content) DATE CREATED AUTHOR 07/25/2020 [facility] DATE CREATED AUTHOR AUTHOR'S ORGANIZ ATION 12/06/2023 [facility] EPIC DATE CREATED AUTHOR AUTHOR'S ORGANIZ ATION 04/09/2024 [facility] DATE CREATED AUTHOR AUTHOR'S ORGANIZ ATION 04/10/2024 [facility] Care Team (unrecognized sect ion and content) [employer] Qualified Relationship Specialty Start Date End Date Unallocated, [place] Provider, [address] [phone] PCP - General 11/25/22 FOR RECORDS PERTAINING TO PATIENTS WHO ARE [...] BE BASED ON THE PRIMARY CLINICAL RECORDS. [facility]. provides no warranty or guarantee of the accuracy or completeness of information in this document.
--- NOTE | 2024-04-13 21:14 | ED_ITS ---
HPI HPI - Extremity Injury (Lower) General Chief Complaint: Extremity Injury, Lower Stated Complaint: foot injury-knee pain/bwc Time Seen by Provider: 04/13/24 21:01 Source: patient Mode of arrival: walk-in Limitations: no limitations History of Present Illness HPI Narrative: 28-year-old female who is 5 weeks presents for right foot and ankle pain. A few days ago while she was working she twisted her foot and ankle area on some steps. No other injury was sustained. She points to the Achilles tendon area to indicate area of most discomfort. Related Data Home Medications ?Medication ?Instructions ?Recorded ?Confirmed cetirizine 10 mg tablet 40 mg PO DAILY 10/16/22 04/13/24 fluticasone propionate 50 1 spray intranasal DAILY 10/16/22 02/11/24 mcg/actuation nasal spray,suspension Previous Rx's ?Medication ?Instructions ?Recorded doxycycline hyclate 100 mg capsule 100 mg PO BID 7 days #14 caps 10/22/22 ibuprofen 600 mg tablet 600 mg PO TID PRN pain #20 tabs 02/11/24 ondansetron 4 mg disintegrating 4 mg PO Q8H PRN nausea and 02/11/24 tablet vomiting 48 hours #10 tabs Allergies Allergy/AdvReac Type Severity Reaction Status Date / Time amoxicillin Allergy Severe Hives Verified 04/13/24 21:10 Opioid HPI Opioid Management Most Recent Pain and Opioid Data: Last Pain Scale 8 04/13/24 20:50 04/13/24 Last ED Pain Assessment 04/13/24 20:50 Review of Systems ROS Narrative A ten point review of systems is negative except as noted above. PFSH PFSH Social History Smoking status: Former smoker Little interest or pleasure in doing things: not at all Feeling down, depressed, or hopeless: not at all Exam Narrative Exam Narrative: Nurses note and vital signs reviewed and patient is not hypoxic. General: The patient appears well and in no apparent distress. Patient is resting comfortably on cart. Skin: Warm, dry, no pallor noted. There is no rash noted. Head: Normocephalic, atraumatic Eye: Normal conjunctiva, no drainage Ears, Nose, Mouth, and Throat: oral mucosa is moist. Nares patent. Cardiovascular: Regular Rate and Rhythm Respiratory: Patient is in no distress, no accessory muscle use, lungs are clear to auscultation, no wheezing, rales or rhonchi Back: non-tender GI: Soft and nontender Musculoskeletal: The right foot and ankle are examined. No bruising or erythema or noted swelling. Perez test is normal. She seems to have diffuse tenderness in the entire foot and ankle region. Neurological: A&O, normal speech Psychiatric: Cooperative Constitutional Vital Signs, click to edit/add: Last Vital Signs Temp 98 F 04/13/24 21:02 Pulse 96 H 04/13/24 21:02 Resp 18 04/13/24 21:02 BP 178/81 H 04/13/24 21:02 Pulse Ox 98 04/13/24 21:02 O2 Del Method Room Air 04/13/24 21:02 Course Vital Signs Vital signs: Vital Signs Temperature 98 F 04/13/24 21:02 Pulse Rate 96 H 04/13/24 21:02 Respiratory Rate 18 04/13/24 21:02 Blood Pressure 178/81 H 04/13/24 21:02 Pulse Oximetry 98 04/13/24 21:02 Oxygen Delivery Method Room Air 04/13/24 21:02 Temperature 98 F 04/13/24 21:02 Pulse Rate 96 H 04/13/24 21:02 Respiratory Rate 18 04/13/24 21:02 Blood Pressure 178/81 H 04/13/24 21:02 Pulse Oximetry 98 04/13/24 21:02 Oxygen Delivery Method Room Air 04/13/24 21:02 MDM - Extremity Injury (Lower) MDM Narrative Medical decision making narrative: X-rays of foot and ankle are negative per radiologist. Bill wrap applied, application checked by me and found to be appropriate, she is neurovascular intact. She was recommended ice rest and elevation and Tylenol. She is p regnant and was recommended no ibuprofen. Treatment diagnosis and follow-up were discussed with the patient. Differential Diagnosis Differential diagnosis: Likely ankle sprain and strain and other (Fracture) Imaging Data Ankle and foot x-rays: Radiologist's impression: ITS Impressions Ankle X-Ray 04/13/24 21:11 IMPRESSION: 1. No acute bone abnormality. Electronically authenticated by: BEBO HUSSEIN Date: 04/13/2024 21:55 Foot X-Ray 04/13/24 21:11 IMPRESSION: 1. No acute bone abnormality. Electronically authenticated by: BEBO HUSSEIN Date: 04/13/2024 21:55 Discharge Plan Discharge Chief Complaint: Extremity Injury, Lower Clinical Impression: Right ankle sprain Patient Disposition: Home, Self-Care Time of Disposition Decision: 22:05 Condition: Good Mode of Transportation: Private Vehicle Prescriptions / Home Meds: No Action ibuprofen 600 mg tablet 600 mg PO TID PRN (Reason: pain) Qty: 20 0RF ondansetron 4 mg tablet,disintegrating 4 mg PO Q8H PRN (Reason: nausea and vomiting) 2 Days Qty: 10 0RF cetirizine 10 mg tablet 40 mg PO DAILY fluticasone propionate 50 mcg/actuation spray,suspension 1 spray INTRANASAL DAILY doxycycline hyclate 100 mg capsule 100 mg PO BID 7 Days Qty: 14 0RF Print Language: Omani Instructions: Ankle Sprain (ED) Referrals: JOYA ABDULLAHI [Primary Care Provider] - 1 week
== END 2024-04-13 22:21 | disposition home or self-care (01) ==
PROVIDERS: Emergency Provider Emergency Medicine; PCP Family Medicine
DX: O9A.211 Injury, poisoning and certain other consequences of external causes complicating pregnancy, first trimester (principal); S93.401A Sprain of unspecified ligament of right ankle, initial encounter; W10.8XXA Fall (on) (from) other stairs and steps, initial encounter; X50.1XXA Overexertion from prolonged static or awkward postures, initial encounter; Z3A.01 Less than 8 weeks gestation of pregnancy; Z87.891 Personal history of nicotine dependence
CPT/HCPCS: 73610; 73630; 99284